=== PATIENT | female | born 1940 | race American Indian/Alaskan Native ===

== ENCOUNTER 2018-12-26 11:23 | Outpatient (CLI) | payer MEDICARE, OTHER | END 2018-12-26 11:24 | disposition home or self-care (01) | LOC: RAD 11:23 ==

== ENCOUNTER 2019-02-16 11:11 | Day surgery (SDC) | payer MEDICARE, OTHER ==
[2019-01-18 09:20] VITALS: BMI 26.6
[2019-02-16] MEDS ORDERED: Sodium Chloride 0.9% 1,000 ML IV SCH (12:30)
[2019-02-16] MEDS ORDERED: Propofol 10 mg/ml Inj (20 ML) ONE (13:39)
[2019-02-16 15:26] VITALS: RESP 16
[2019-02-16 16:56] VITALS: PULSE 88; TEMP 97.8; O2SAT 99
[2019-02-16 16:57] VITALS: BP 137/68
== END 2019-02-16 16:30 | disposition home or self-care (01) ==
LOC: ENDO 11:11
PROVIDERS: ATTEND Internal Medicine Gastroenterology
DX: Z12.11 Encounter for screening for malignant neoplasm of colon (principal); K63.5 Polyp of colon; K63.3 Ulcer of intestine; K64.0 First degree hemorrhoids; K21.9 Gastro-esophageal reflux disease without esophagitis; I10 Essential (primary) hypertension
CPT/HCPCS: 45380; 45385; 88305; J2001; J2704; J7030; J7040

== ENCOUNTER 2019-02-21 17:36 | Inpatient (IN) | payer MEDICARE, OTHER ==
--- NOTE | 2019-02-21 18:28 | CT ---
Date of service: 02/21/2019 PROCEDURE: CT HEAD WITHOUT CONTRAST. HISTORY: code stroke COMPARISON: Brain MRI without contrast performed 10/27/13 TECHNIQUE: Axial computed tomography images were obtained through the head/brain without intravenous contrast. Radiation dose: Total exam DLP = 1948.03 mGy-cm. This CT exam was performed using one or more of the following dose reduction techniques: Automated exposure control, adjustment of the mA and/or kV according to patient size, and/or use of iterative reconstruction technique. FINDINGS: Suboptimal evaluation due to patient motion. HEMORRHAGE: No intracranial hemorrhage. BRAIN: Diffuse atrophy with prominence of the ventricles and sulci noted. No mass effect or edema. Intracranial atherosclerosis. Nonspecific vague hypodense region within the right vertex (series 8, image 58). Scattered periventricular and subcortical white matter hypodensities, which are nonspecific, but often seen with chronic microvascular ischemic disease. Please note that MRI with diffusion imaging is more sensitive in the detection of acute ischemic event. VENTRICLES: No hydrocephalus. CALVARIUM: Unremarkable. PARANASAL SINUSES: Unremarkable as visualized. No significant inflammatory changes. MASTOID AIR CELLS: Unremarkable as visualized. No inflammatory changes. OTHER FINDINGS: None. IMPRESSION: Suboptimal evaluation due to patient motion. Nonspecific vague hypodense region within the right vertex; while this finding is favored to be artifactual due to patient motion, acute ischemic change cannot be excluded. Correlate with clinical presentation. Please note that MRI with diffusion imaging is more sensitive in the detection of acute ischemic event. Generalized atrophy. Moderate nonspecific white matter changes. Results were discussed with WALLACE Duvall on 02/21/19 at 6:19 p.m. as the ordering physician was unavailable in a procedure.
--- NOTE | 2019-02-21 18:42 | ED PDOC ---
Arrival/HPI - General Historian: Family (daughter) - Critical Care Critical Care Minutes: 75 minutes - History of Present Illness Narrative History of Present Illness (Text): 02/21/19 19:02 79 year old F with pmh of hypertension, anemia and GERD presents with daughter s/p possible stroke at 17:30 today. The patient's daughter reports patient was last seen at [id number], she noted left sided facial droop, slurred speech and weakness with her left upper extremity. Patient denies any chest pain, shortness of breath, dyspnea on exertion, cough, abdominal pain, nausea, vomiting, diarrhea, back pain, neck pain, or any other complaint. Of note, the daughter denies any recent surgeries, intracranial bleeding, seizure history or gastrointestinal bleeding or use of anticoagulants. PMD: Dr. Mason Time/Duration: Prior to Arrival Symptom Onset: Sudden Symptom Course: Unchanged Activities at Onset: Light Context: Home <Aubrey Felix - Last Filed: 02/22/19 11:02> <Abhishek Rodriguez - Last Filed: 02/27/19 14:53> - General Chief Complaint: Weakness/Neurological Deficit Time Seen by Provider: 02/21/19 18:03 Past Medical History - Provider Review Nursing Documentation Reviewed: Yes Primary Care Provider: Tiny Mason - Infectious Disease Hx of Infectious Diseases: None - Reproductive Menopause: Yes - Cardiac Hx Cardiac Disorders: Yes Hx Hypertension: Yes Hx Pacemaker: No - Neurological Hx Paralysis: No - Hematological/Oncological Hx Blood Transfusions: No - Integumentary Hx Dermatological Disorder: No - Musculoskeletal/Rheumatological Hx Musculoskeletal Disorders: No - Gastrointestinal Hx Gastroesophageal Reflux: Yes - Genitourinary/Gynecological Hx Genitourinary Disorders: No - Psychiatric Hx Emotional Abuse: No Hx Physical Abuse: No Hx Substance Use: No - Anesthesia Hx Anesthesia: Yes Hx Anesthesia Reactions: No Hx Malignant Hyperthermia: No - Suicidal Assessment Feels Threatened In Home Enviroment: No <Aubrey Felix - Last Filed: 02/22/19 11:02> Family/Social History - Physician Review Nursing Documentation Reviewed: Yes Family/Social History: Unknown Family HX Smoking Status: Never Smoked Hx Alcohol Use: No Hx Substance Use: No <Aubrey Felix - Last Filed: 02/22/19 11:02> Allergies/Home Meds <Aubrey Felix - Last Filed: 02/22/19 11:02> <Abhishek Rodriguez - Last Filed: 02/27/19 14:53> Allergies/Adverse Reactions: Allergies No Known Allergies Allergy (Verified 02/26/19 19:55) Home Medications: Home Meds Medication Instructions Recorded Confirmed Donepezil [Aricept] 10 mg PO DAILY 06/20/15 02/26/19 Metoprolol Succinate XL [Toprol XL] 50 mg PO QPM 06/20/15 02/26/19 Tolterodine [Detrol LA] 4 mg PO DAILY 06/20/15 02/26/19 Aspirin [Adult Low Dose Aspirin EC] 81 mg PO DAILY 01/18/19 02/26/19 Acetaminophen [Tylenol] 650 mg PO Q6 PRN 02/26/19 02/26/19 Atorvastatin Calcium 40 mg PO HS 02/26/19 02/26/19 Pantoprazole [Protonix] 40 mg PO 0600 02/26/19 02/26/19 guaiFENesin/Dextromethorphan 5 ml PO Q4 PRN 02/26/19 02/26/19 [Guaifenesin-Dm 10 MG/5 Ml-100 MG/5 Ml 5 Ml] Review of Systems - Physician Review All systems were reviewed & negative as marked: Yes - Review of Systems Systems not reviewed;Unavailable: Acuity of Condition Constitutional: absent: Fevers ENT: absent: Sore Throat, Rhinorrhea Respiratory: absent: SOB, Cough, Wheezing Cardiovascular: absent: Chest Pain Gastrointestinal: absent: Abdominal Pain, Constipation, Diarrhea, Nausea, Vomiting, Hematochezia, Hematemesis Genitourinary Female: absent: Dysuria, Hematuria Musculoskeletal: absent: Arthralgias, Back Pain, Myalgias Skin: absent: Rash, Skin Lesions, Laceration, Ulcer Neurological: Facial Droop (left sided) <Aubrey Felix - Last Filed: 02/22/19 11:02> Physical Exam Vital Signs Reviewed: Yes Vital Signs Temp Pulse Resp BP Pulse Ox 02/21/19 17:38 98.1 F 90 18 178/119 H 98 Temperature: Afebrile Blood Pressure: Hypertensive Pulse: Regular Respiratory Rate: Normal Appearance: Positive for: Well-Appearing, Non-Toxic, Comfortable Pain Distress: None Mental Status: Positive for: Lethargic Finger Stick Blood Glucose: 109 - Systems Exam Head: Present: Atraumatic, Normocephalic Pupils: Present: PERRL Extroacular Muscles: Present: Gaze Palsy (deviated rightward gaze) Conjunctiva: Present: Normal Mouth: Present: Moist Mucous Membranes Neck: Present: Normal Range of Motion Respiratory/Chest: Present: Clear to Auscultation, Good Air Exchange. No: Respiratory Distress, Accessory Muscle Use Cardiovascular: Present: Regular Rate and Rhythm, Normal S1, S2. No: Murmurs Abdomen: No: Tenderness, Distention, Peritoneal Signs Back: Present: Normal Inspection Upper Extremity: Present: Other (Left Upper extremity droop. Left arm 2/5 motor strength. Right arm 4/5 motor strength. ). No: Cyanosis, Edema Lower Extremity: Present: Other (Left lower extremity 2/5 motor strength, 3/5 right lower extremity strength). No: Edema Neurological: Present: Normal Sensory Function, Other (Dysarthria noted) Skin: Present: Warm, Dry, Normal Color. No: Rashes Psychiatric: Present: Alert <Aubrey Felix - Last Filed: 02/22/19 11:02> Vital Signs Temp Pulse Resp BP Pulse Ox 02/21/19 22:26 90 18 147/93 H 96 02/21/19 22:11 96 H 18 183/117 H 96 02/21/19 22:06 94 H 18 186/111 H 94 L 02/21/19 21:43 79 18 177/103 H 98 02/21/19 20:55 97.8 F 88 18 179/116 H 95 02/21/19 20:41 97 H 18 148/82 95 02/21/19 20:26 87 18 170/99 H 95 02/21/19 20:11 82 18 163/104 H 94 L 02/21/19 20:10 84 18 177/95 H 94 L 02/21/19 20:05 80 18 149/93 H 94 L 02/21/19 20:03 98.3 F 80 18 164/100 H 02/21/19 19:45 91 H 18 163/95 H 95 02/21/19 19:33 82 18 176/119 H 97 02/21/19 18:56 88 18 168/127 H 97 02/21/19 17:38 98.1 F 90 18 178/119 H 98 <Zeffren,Abhishek - Last Filed: 02/27/19 14:53> Medical Decision Making ED Course and Treatment: 02/21/19 19:02 Impression: 79 year old F presents with daughter s/p possible stroke at 17:30 today. Daughter reports patient last baseline was at 17:[address], she noted left facial droop NIHSS: 11 tPA eligibility: Yes Plan: -- Labs -- CTA Head & Neck -- EKG -- Chest X-ray -- Alteplase --Cardene --IV fluids --CTH -- Urinalysis -- Reassess and disposition Progress Notes: 02/21/19 18:47 Patient's daughter was educated on the use and risk of TPA. CTH negative for acute intracranial bleeding. Discussion with Dr. Del Rio(neurology) who states patient is a candidate for tPA and requests for CTA head/neck to be performed after initial tPA bolus and after infusion is started. Consent forms signed. 02/21/19 19:33 Pharmacy alerted on need for tPA. Blood pressure noted to be 180/121. Cardene ordered. Spoke to Dr. Brennan(covering Dr. Mason) who accept patient onto his service. 02/21/19 19:38 Cardene at 5mg/hr with repeat blood pressure noted to be 176/121. Cardene dosage increased. 02/21/19 19:47 Repeat blood pressure noted to be 165/95. Preparing for tPA administration. Spoke to Dr. Garcia(house staff) for ICU monitoring after tPA administration. 02/21/19 20:06 tPA given. Patient noted to be drooling. Blood pressure back up to 175/100s. Cardene restarted. 02/21/19 20:25 Patient will have CTA performed once tPA infusion has completed. - Critical Care Critical Care Minutes: 60 minutes - Lab Interpretations Lab Results: 02/21/19 18:43 02/21/19 18:43 Lab Results 02/21/19 18:43: Sodium 142, Potassium 3.6, Chloride 102, Carbon Dioxide 34 H, Anion Gap 10, BUN 12, Creatinine 0.9, Est GFR ( Amer) > 60, Est GFR (Non- Af Amer) > 60, Random Glucose 99, Calcium 9.2, Total Bilirubin 0.4, AST 38 H, ALT 19, Alkaline Phosphatase 68, Troponin I < 0.01, Total Protein 7.9, Albumin 4.1, Globulin 3.9, Albumin/Globulin Ratio 1.1, Triglycerides 147, Cholesterol 168, LDL Cholesterol Direct 84, HDL Cholesterol 43 02/21/19 18:43: PT 13.8 H, INR 1.24, APTT 38.5 H 02/21/19 18:43: WBC 7.8, RBC 4.38, Hgb 12.0, Hct 37.9, MCV 86.5, MCH 27.4, MCHC 31.7, RDW 14.6 H, Plt Count 399, MPV 9.7, Neut % (Auto) 39.2 L, Lymph % (Auto) 49.9 H, [place] % (Auto) 9.7 H, Eos % (Auto) 0.8 L, Baso % (Auto) 0.4, Lymph # (Auto) 3.9 H, [place] # (Auto) 0.8 H, Eos # (Auto) 0.1, Baso # (Auto) 0.03, Absolute Neuts (auto) 3.05 I have reviewed the lab results: Yes - RAD Interpretation Narrative RAD Interpretations (Text): PROCEDURE: CT HEAD WITHOUT CONTRAST. HISTORY: code stroke COMPARISON: Brain MRI without contrast performed 10/27/13 TECHNIQUE: Axial computed tomography images were obtained through the head/brain without intravenous contrast. Radiation dose: Total exam DLP = 1948.03 mGy-cm. This CT exam was performed using one or more of the following dose reduction techniques: Automated exposure control, adjustment of the mA and/or kV according to patient size, and/or use of iterative reconstruction technique. FINDINGS: Suboptimal evaluation due to patient motion. HEMORRHAGE: No intracranial hemorrhage. BRAIN: Diffuse atrophy with prominence of the ventricles and sulci noted. No mass effect or edema. Intracranial atherosclerosis. Nonspecific vague hypodense region within the right vertex (series 8, image 58). Scattered periventricular and subcortical white matter hypodensities, which are nonspecific, but often seen with chronic microvascular ischemic disease. Please note that MRI with diffusion imaging is more sensitive in the detection of acute ischemic event. VENTRICLES: No hydrocephalus. CALVARIUM: Unremarkable. PARANASAL SINUSES: Unremarkable as visualized. No significant inflammatory changes. MASTOID AIR CELLS: Unremarkable as visualized. No inflammatory changes. OTHER FINDINGS: None. IMPRESSION: Suboptimal evaluation due to patient motion. Nonspecific vague hypodense region within the right vertex; while this finding is favored to be artifactual due to patient motion, acute ischemic change cannot be excluded. Correlate with clinical presentation. Please note that MRI with diffusion imaging is more sensitive in the detection of acute ischemic event. Generalized atrophy. Moderate nonspecific white matter changes. Results were discussed with WALLACE Duvall on 02/21/19 at 6:19 p.m. as the ordering physician was unavailable in a procedure. 02/21/2019 PROCEDURE: CT Angiography of the neck with contrast HISTORY: LUE and drooling COMPARISON: None. TECHNIQUE: Contiguous axial images of the neck were obtained from the level of the skull- base to the superior mediastinum in the arteriographic phase of enhancement. Coronal and sagittal reformats or also generated. IV contrast dose: Radiation dose: Total exam DLP = 643.63 mGy-cm. This CT exam was performed using one or more of the following dose reduction techniques: Automated exposure control, adjustment of the mA and/or kV according to patient size, and/or use of iterative reconstruction technique. FINDINGS: RIGHT CAROTID ARTERIES: Common Carotid Artery: Normal. Carotid Bifurcation: Normal. Internal Carotid Artery:Minimal calcified plaque without stenosis. External Carotid Artery (proximal branches): Normal. LEFT CAROTID ARTERIES: Common Carotid Artery: Normal. Carotid Bifurcation: Normal. Internal Carotid Artery:Normal. External Carotid Artery (proximal branches): Normal. VERTEBRAL ARTERIES: Right Vertebral Artery: Normal. Left Vertebral Artery: Normal. OTHER FINDINGS: Aortic calcification IMPRESSION: No significant carotid or vertebral stenosis CT Angiography of the Brain. HISTORY: LUE and drooling COMPARISON: None available. TECHNIQUE: CT angiography of the intracranial arteries was performed. Coronal and sagittal maximum intensity projection reformated images were generated. Radiation dose: Total exam DLP = 643.63 mGy-cm. This CT exam was performed using one or more of the following dose reduction techniques: Automated exposure control, adjustment of the mA and/or kV according to patient size, and/or use of iterative reconstruction technique. FINDINGS: INTERNAL CEREBRAL ARTERIES: Unremarkable. The skull base, petrous, cavernous and supraclinoid segments are bilaterally widely patent. ANTERIOR CEREBRAL ARTERIES: Unremarkable. A1 and A2 segments are widely patent. Smaller distal branches unremarkable, as visualized. MIDDLE CEREBRAL ARTERIES: Unremarkable. M1 and M2 segments are widely patent. Perisylvian branches grossly symmetric. POSTERIOR CIRCULATION: Basilar Artery: Unremarkable. Distal Vertebral Arteries: Unremarkable. Posterior Cerebral Arteries: Unremarkable. Posterior Inferior Cerebellar Arteries: Unremarkable. ANEURYSM/ VASCULAR MALFORMATIONS: None. OTHER FINDINGS: The report concurs with the preliminary [facility] report IMPRESSION: Unremarkable CT Angiography of the Brain. Radiology Orders: 02/21/19 17:52 HEAD W/O (CODE STROKE) [CT] Stat 02/21/19 18:29 CHEST PORTABLE [RAD] Stat <Bosompem,Aubrey - Last Filed: 02/22/19 11:02> - Lab Interpretations Lab Results: PT 13.8 SECONDS (9.4-12.5) H 02/21/19 18:43 INR 1.24 02/21/19 18:43 APTT 38.5 Seconds (26.9-38.3) H 02/21/19 18:43 Troponin I < 0.01 ng/mL 02/21/19 18:43 Total Bilirubin 0.4 mg/dL (0.2-1.3) 02/21/19 18:43 AST 38 U/L (14-36) H 02/21/19 18:43 ALT 19 U/L (7-56) 02/21/19 18:43 Alkaline Phosphatase 68 U/L (38-126) 02/21/19 18:43 Total Protein 7.9 g/dL (5.8-8.3) 02/21/19 18:43 Albumin 4.1 g/dL (3.0-4.8) 02/21/19 18:43 Globulin 3.9 gm/dL 02/21/19 18:43 Albumin/Globulin Ratio 1.1 (1.1-1.8) 02/21/19 18:43 Urine Color Yellow (YELLOW) 02/21/19 21:10 Urine Appearance Clear (CLEAR) 02/21/19 21:10 Urine pH 6.5 (4.7-8.0) 02/21/19 21:10 Ur Specific [place] 1.025 (1.005-1.035) 02/21/19 21:10 Urine Protein 30 mg/dL (<30 mg/dL) H 02/21/19 21:10 Urine Glucose (UA) Negative mg/dL (NEGATIVE) 02/21/19 21:10 Urine Ketones Negative mg/dL (NEGATIVE) 02/21/19 21:10 Urine Blood Trace-intact (NEGATIVE) H 02/21/19 21:10 Urine Nitrate Negative (NEGATIVE) 02/21/19 21:10 Urine Bilirubin Negative (NEGATIVE) 02/21/19 21:10 Urine Urobilinogen 0.2 E.U./dL (<1 E.U./dL) 02/21/19 21:10 Ur Leukocyte Esterase Negative Ge[place]ani/uL (NEGATIVE) 02/21/19 21:10 Urine RBC 2 - 5 /hpf (0-2) H 02/21/19 21:10 Urine WBC 1 - 3 /hpf (0-6) 02/21/19 21:10 Ur Epithelial Cells 4 - 5 /hpf (0-5) 02/21/19 21:10 Urine Bacteria Few /hpf (NONE) 02/21/19 21:10 - RAD Interpretation Radiology Orders: 02/21/19 17:52 HEAD W/O (CODE STROKE) [CT] Stat 02/21/19 18:29 CHEST PORTABLE [RAD] Stat 02/21/19 18:58 CTA HEAD & NECK BUNDLE [CT] Stat - Medication Orders Current Medication Orders: Aspirin (Ecotrin) 81 mg PO DAILY [facility] Last Admin: 02/22/19 09:11 Dose: Not Given Non-Admin Reason: NPO Atorvastatin Calcium (Lipitor) 40 mg PO DIN [facility] Donepezil HCl (Aricept) 10 mg PO DAILY [facility] Last Admin: 02/22/19 09:11 Dose: Not Given Non-Admin Reason: NPO Guaifenesin/Dextromethorphan (Robitussin Dm) 5 ml PO Q4H PRN PRN Reason: Cough Metoprolol Succinate (Toprol Xl) 50 mg PO QPM [facility] Pantoprazole Sodium (Protonix Inj) 40 mg IVP Q12 [facility] Last Admin: 02/22/19 11:08 Dose: 40 mg IVP Administration Document 02/22/19 11:08 RAMOM (Rec: 02/22/19 11:08 [place] [facility] [id number] Charges for Administration # of IVP Administrations 1 Tolterodine Tartrate (Detrol La) 4 mg PO DAILY [facility] Last Admin: 02/22/19 09:11 Dose: Not Given Non-Admin Reason: NPO Discontinued Medications Alteplase, Recombinant (Activase 100 Mg Inj) 7 mg 0.09 mg/kg (7 mg) IV ONCE ONE Stop: 02/21/19 18:54 Last Admin: 02/21/19 20:03 Dose: 7 mg eMAR Start Stop Document 02/21/19 20:03 KV (Rec: 02/21/19 20:07 KV [id number]) Intravenous Solution Start Date 02/21/19 Start Time 20:03 End Date 02/21/19 End time 20:04 Total Infusion Time 1 Alteplase, Recombinant (Activase 100 Mg Inj) 65 mg 0.81 mg/kg (65 mg) IV ONCE ONE Stop: 02/21/19 19:00 Last Admin: 02/21/19 20:12 Dose: 65 mg eMAR Start Stop Document 02/21/19 20:12 KV (Rec: 02/21/19 20:12 KV [id number]) Intravenous Solution Start Date 02/21/19 Start Time 20:07 End Date 02/21/19 End time 20:55 Total Infusion Time 48 Atorvastatin Calcium (Lipitor) 10 mg PO DIN MARI[facility] Atorvastatin Calcium (Lipitor) 80 mg PO DIN [facility] Nicardipine HCl (Cardene Iv Premix) 20 mg in 200 mls @ 50 mls/hr IV .Q4H STA Stop: 02/21/19 23:22 Last Infusion: 02/21/19 22:38 Dose: 2.5 mg/hr, 25 mls/hr Titration Intervention Document 02/21/19 22:38 KV (Rec: 02/21/19 22:38 KV [id number]) Titration Intake Titration Intake 5 Cumulative Intake 55 Cumulative Intake (Rx) 55 Waste Amount 0 Container Volume 95 Titration Dosing Titration Dose 2.5 IV Rate 25 Intake/Decrease Decreased Cumulative Dose 5.5 Sodium Chloride (Sodium Chloride 0.9%) 1,000 mls @ 100 mls/hr IV .Q10H STA Stop: 02/22/19 06:31 Last Admin: 02/21/19 20:07 Dose: 100 mls/hr eMAR Start Stop Document 02/21/19 20:07 KV (Rec: 02/21/19 20:58 KV [id number]) Intravenous Solution Start Date 02/21/19 Start Time 20:07 Nicardipine HCl (Cardene Iv Premix) 20 mg in 200 mls @ 50 mls/hr IV .Q4H PRN; Protocol PRN Reason: TITRATE PER MD ORDER Last Titration: 02/22/19 04:44 Dose: 0 mg/hr, 0 mls/hr Titration Intervention Document 02/22/19 04:44 FM (Rec: 02/22/19 04:45 FM [facility] [id number] Titration Intake Titration Intake 150 Cumulative Intake 150 Cumulative Intake (Rx) 150 Waste Amount 0 Container Volume 50 Titration Dosing Titration Dose 0 IV Rate 0 Intake/Decrease Paused Cumulative Dose 15 Ondansetron HCl (Zofran Inj) 4 mg IVP STAT STA Stop: 02/21/19 20:34 Last Admin: 02/21/19 19:56 Dose: 4 mg IVP Administration Document 02/21/19 19:56 KV (Rec: 02/21/19 20:57 KV [id number]) Charges for Administration # of IVP Administrations 1 <Abhishek Rodriguez - Last Filed: 02/27/19 14:53> NIHSS Scale(Friendly)3 Time Performed: 18:38 - How Severe is the Stoke Baseline Level of Consciousness: 1=Drowsy LOC to Questions: 1=One correct LOC to commands: 1=Obeys one correctly Best Gaze: 1=Partial gaze palsy Visual: 0=No visual loss Facial: 2=Partial (lower face paralysis) Motor Arm - Left: 2=Falls before 10 sec Motor Arm - Right: 0=No drift Motor Leg - Left: 1=Drift before 5 sec Motor Leg - Right: 0=No drift Limb Ataxia: 0=Absent Sensory: 0=Normal Best Language: 1=Mild to moderate aphasia Dysarthia: 1=Mild to moderate slurring Extinction & Inattention (Neglect): 0=Normal, no object Score: 11 Risk Level: Mod Stroke Risk <Aubrey Felix - Last Filed: 02/22/19 11:02> rTPA Inclusion/Exclusion - Refusal of Treatment Patient Refused Treatment: No - Inclusion Criteria for Altepase All of the below criteria for inclusion were reviewed: Yes Patient is 18 years or Older: Yes The Clinical Diagnosis of Ischemic Stroke That is Causing a Potentially Disabling Neurological Deficit: Yes Time of Onset is Well Established to be Less Than 270 Minute Before Treatment Would Begin: Yes Risk/Benefit Discussed With Patient/Family Member Present: Yes - Exclusion Criteria for Altepase Current Intracranial Hemorrhage: No Subarachnoid hemorrhage: No Active Internal Bleeding: No Recent (within 3 months) Intracranial or Intraspinal Surgery: No Presence of intracranial conditions that may increase the risk of bleeding: Not Applicable Current Severe Uncontrolled Hypertension: Yes <Harrison Felixyl - Last Filed: 02/22/19 11:02> - Exclusion Criteria for Altepase Bleeding Diathesis Including but not limited to: Not Applicable <Abhishek Rodriguez - Last Filed: 02/27/19 14:53> - Scribe Statement The provider has reviewed the documentation as recorded by the Lili Cancino All medical record entries made by the Lili were at my direction and personally dictated by me. I have reviewed the chart and agree that the record accurately reflects my personal performance of the history, physical exam, medical decision making, and the department course for this patient. I have also personally directed, reviewed, and agree with the discharge instructions and disposition. <Aubrey Felix - Last Filed: 02/22/19 11:02> Disposition/Present on Arrival - Present on Arrival Any Indicators Present on Arrival: No History of DVT/PE: No History of Uncontrolled Diabetes: No Urinary Catheter: No History of Decub. Ulcer: No History Surgical Site Infection Following: None - Disposition Have Diagnosis and Disposition been Completed?: Yes Disposition Time: 18:30 Patient Plan: Admission, ICU <Aubrey Felix - Last Filed: 02/22/19 11:02> <Abhishek Rodriguez - Last Filed: 02/27/19 14:53> - Disposition Diagnosis: CVA (cerebral vascular accident), Hypertensive emergency Disposition: HOSPITALIZED Condition: GUARDED
[2019-02-21 18:46] LABS: BLOOD UREA NITROGEN 12 mg/dL (7-21); GFR NON-AFRICAN AMERICAN > 60
[2019-02-21 18:47] LABS: ALB/GLOB RATIO 1.1 (1.1-1.8); ALBUMIN 4.1 g/dL (3.0-4.8); ALT/SGPT 19 U/L (7-56); AST/SGOT 38 U/L (14-36); BASO # 0.03 K/mm3 (0.0-2.0); BASO % 0.4 % (0.0-3.0); CALCIUM 9.2 mg/dL (8.4-10.5); EOS # 0.1 (0.0-0.7); EOS % 0.8 % (1.5-5.0); LYMPH # 3.9 (1.2-3.4); LYMPH % 49.9 % (22.0-35.0); MEAN CELL VOLUME 86.5 fl (80.0-105.0); MEAN CORPUSCULAR HEMOGLOBIN 27.4 pg (25.0-35.0); MEAN CORPUSCULAR HGB CONC 31.7 g/dl (31.0-37.0); MEAN PLATELET VOLUME 9.7 fl (7.0-11.0); MONO # 0.8 (0.1-0.6); MONO % 9.7 % (1.0-6.0); RBC 4.38 10^6/uL (3.5-6.1); RED CELL DISTRIBUTION WIDTH 14.6 % (11.5-14.5); WHITE BLOOD COUNT 7.8 10^3/uL (4.5-11.0)
[2019-02-21 18:48] LABS: HDL CHOLESTEROL 43 mg/dL (29-60); LDL CHOLESTEROL 84 mg/dL (0-129); TROPONIN I < 0.01 ng/mL
[2019-02-21 18:51] LABS: INR 1.24; PARTIAL THROMBOPLASTIN TIME 38.5 Seconds (26.9-38.3); PROTHROMBIN TIME 13.8 SECONDS (9.4-12.5)
[2019-02-21] MEDS ORDERED: Nicardipine 20 MG/200 ML 20 MG/200 ML BAG IV STA (19:23)
[2019-02-21] MEDS ORDERED: Sodium Chloride 0.9% 1,000 ML IV STA (20:32)
[2019-02-21 21:24] LABS: PH,URINE 6.5 (4.7-8.0); URINE BILIRUBIN NEGATIVE (NEGATIVE); URINE BLOOD TRACE-INTACT (NEGATIVE); URINE GLUCOSE (UA) NEGATIVE (NEGATIVE); URINE LEUKOCYTE ESTERASE NEGATIVE Leu/uL (NEGATIVE); URINE PROTEIN 30 mg/dL (<30 mg/dL); URINE UROBILINOGEN 0.2 E.U./dL (<1 E.U./dL)
[2019-02-21 21:27] LABS: URINE APPEARANCE CLEAR (CLEAR); URINE COLOR YELLOW (YELLOW)
--- NOTE | 2019-02-21 21:33 | CP.PCM.CON ---
<Lion Fengnéstor - Last Filed: 02/21/19 22:47> History of Present Illness - History of Present Illness History of Present Illness: Johnson Feng DO, PGY-2: ICU Consult Note for Dr. Garcia 79 year old, right handed female with a past medical history of hypertension, mild dementia, and heart murmur who presented with left facial droop, slurred speech, and left arm weakness noted at 17:30 today by daughter. Patient met criteria for tPa which was given at the discretion of the on-call Neurologist. 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 She has received alteplase and is awaiting CTA of head and neck. Family is at the bedside. She denies having any kind of chest pain, nausea, vomiting, severe head ache, fever, chills, or palpitations. Otherwise, a 12 point ROS is negative except as mentioned above. PMH: hypertension, heart murmur, mild dementia PSH: Unknown Allergies: Denies Social: Denies alcohol, tobacco, or illicit drug use PMD: Dr. Mason Review of Systems - Review of Systems All systems: reviewed and no additional remarkable complaints except (as per HPI) Past Patient History - Infectious Disease Hx of Infectious Diseases: None - Past Social History Smoking Status: Never Smoked - CARDIAC Hx Cardiac Disorders: Yes Hx Hypertension: Yes Hx Pacemaker: No - NEUROLOGICAL Hx Paralysis: No - HEMATOLOGICAL/ONCOLOGICAL Hx Blood Transfusions: No - INTEGUMENTARY Hx Dermatological Problems: No - MUSCULOSKELETAL/RHEUMATOLOGICAL Hx Musculoskeletal Disorders: No - GASTROINTESTINAL Hx Gastroesophageal Reflux: Yes - GENITOURINARY/GYNECOLOGICAL Hx Genitourinary Disorders: No - PSYCHIATRIC Hx Emotional Abuse: No Hx Physical Abuse: No Hx Substance Use: No - SURGICAL HISTORY Hx Surgeries: Yes - ANESTHESIA Hx Anesthesia: Yes Hx Anesthesia Reactions: No Hx Malignant Hyperthermia: No Meds Allergies/Adverse Reactions: Allergies Allergy/AdvReac Type Severity Reaction Status Date / Time No Known Allergies Allergy Verified 08/16/15 20:58 - Medications Medications: Current Medications Nicardipine HCl (Cardene Iv Premix) 20 mg in 200 mls @ 50 mls/hr IV .Q4H STA Stop: 02/21/19 23:22 Last Infusion: 02/21/19 20:58 Dose: 2.5 mg/hr, 25 mls/hr Sodium Chloride (Sodium Chloride 0.9%) 1,000 mls @ 100 mls/hr IV .Q10H STA Stop: 02/22/19 06:31 Last Admin: 02/21/19 20:07 Dose: 100 mls/hr Physical Exam - Constitutional Appears: Non-toxic, No Acute Distress - Head Exam Head Exam: ATRAUMATIC, NORMOCEPHALIC - Eye Exam Pupil Exam: PERRL Additional comments: right gaze preference - ENT Exam ENT Exam: Mucous Membranes Moist - Neck Exam Neck exam: Positive for: Normal Inspection - Respiratory Exam Respiratory Exam: Clear to Auscultation Bilateral, NORMAL BREATHING PATTERN. absent: Accessory Muscle Use - Cardiovascular Exam Cardiovascular Exam: RRR, +S1, +S2 - GI/Abdominal Exam GI & Abdominal Exam: Normal Bowel Sounds, Soft - Extremities Exam Extremities exam: Positive for: normal inspection. 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 4/5, left facial droop, no dysmetria noted on finger to nose, lower extremities graded 5/5 bilaterally, patient has dysarthria but no aphasia, and is exhbiting some left sided neglect - Psychiatric Exam Psychiatric exam: Normal Affect, Normal Mood - Skin Skin Exam: Dry, Intact, Normal Color, Warm Results - Vital Signs Recent Vital Signs: Last Vital Signs Temp 97.8 F 02/21/19 20:55 Pulse 88 02/21/19 20:55 Resp 18 02/21/19 20:55 BP 179/116 H 02/21/19 20:55 Pulse Ox 95 02/21/19 20:55 - Labs Result Diagrams: 02/21/19 18:43 02/21/19 18:43 Labs: Laboratory Results - last 24 hr 02/21/19 02/21/19 02/21/19 18:43 18:43 18:43 WBC 7.8 RBC 4.38 Hgb 12.0 Hct 37.9 MCV 86.5 MCH 27.4 MCHC 31.7 RDW 14.6 H Plt Count 399 MPV 9.7 Neut % (Auto) 39.2 L Lymph % (Auto) 49.9 H Elliott % (Auto) 9.7 H Eos % (Auto) 0.8 L Baso % (Auto) 0.4 Lymph # (Auto) 3.9 H Elliott # (Auto) 0.8 H Eos # (Auto) 0.1 Baso # (Auto) 0.03 Absolute Neuts (auto) 3.05 PT 13.8 H INR 1.24 APTT 38.5 H Sodium 142 Potassium 3.6 Chloride 102 Carbon Dioxide 34 H Anion Gap 10 BUN 12 Creatinine 0.9 Est GFR ( Amer) > 60 Est GFR (Non-Af Amer) > 60 Random Glucose 99 Calcium 9.2 Total Bilirubin 0.4 AST 38 H ALT 19 Alkaline Phosphatase 68 Troponin I < 0.01 Total Protein 7.9 Albumin 4.1 Globulin 3.9 Albumin/Globulin Ratio 1.1 Triglycerides 147 Cholesterol 168 LDL Cholesterol Direct 84 HDL Cholesterol 43 Urine Color Urine Appearance Urine pH Ur Specific [place] Urine Protein Urine Glucose (UA) Urine Ketones Urine Blood Urine Nitrate Urine Bilirubin Urine Urobilinogen Ur Leukocyte Esterase Blood Type BBK History Checked 02/21/19 02/21/19 02/21/19 18:53 19:30 21:10 WBC RBC Hgb Hct MCV MCH MCHC RDW Plt Count MPV Neut % (Auto) Lymph % (Auto) Elliott % (Auto) Eos % (Auto) Baso % (Auto) Lymph # (Auto) Elliott # (Auto) Eos # (Auto) Baso # (Auto) Absolute Neuts (auto) PT INR APTT Sodium Potassium Chloride Carbon Dioxide Anion Gap BUN Creatinine Est GFR ( Amer) Est GFR (Non-Af Amer) Random Glucose Calcium Total Bilirubin AST ALT Alkaline Phosphatase Troponin I Total Protein Albumin Globulin Albumin/Globulin Ratio Triglycerides Cholesterol LDL Cholesterol Direct HDL Cholesterol Urine Color Yellow Urine Appearance Clear Urine pH 6.5 Ur Specific [place] 1.025 Urine Protein 30 H Urine Glucose (UA) Negative Urine Ketones Negative Urine Blood Trace-intact H Urine Nitrate Negative Urine Bilirubin Negative Urine Urobilinogen 0.2 Ur Leukocyte Esterase Negative Blood Type O POSITIVE BBK History Checked No verified bt Patient has bt Assessment & Plan - Assessment and Plan (Free Text) Assessment: 79 year old, right handed female with a past medical history of hypertension, mild dementia, and heart murmur who presented with left facial droop, slurred speech, and left arm weakness noted at 17:30 today by daughter. 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 Del [place] Case was reviewed and discussed with attending physician, Dr. Garcia <Kapil Garcia - Last Filed: 02/22/19 20:56> Meds - Medications Medications: Current Medications Aspirin (Ecotrin) 81 mg PO DAILY [facility] Last Admin: 02/22/19 09:11 Dose: Not Given Atorvastatin Calcium (Lipitor) 40 mg PO DIN [facility] Last Admin: 02/22/19 17:29 Dose: 40 mg Donepezil HCl (Aricept) 10 mg PO DAILY [facility] Last Admin: 02/22/19 09:11 Dose: Not Given Guaifenesin/Dextromethorphan (Robitussin Dm) 5 ml PO Q4H PRN PRN Reason: Cough Last Admin: 02/22/19 17:29 Dose: 5 ml Metoprolol Succinate (Toprol Xl) 50 mg PO QPM [facility] Last Admin: 02/22/19 17:29 Dose: 50 mg Pantoprazole Sodium (Protonix Inj) 40 mg IVP Q12 [facility] Last Admin: 02/22/19 11:08 Dose: 40 mg Tolterodine Tartrate (Detrol La) 4 mg PO DAILY [facility] Last Admin: 02/22/19 09:11 Dose: Not Given Results - Vital Signs Recent Vital Signs: Last Vital Signs Temp 98.1 F 02/22/19 16:00 Pulse 113 H 02/22/19 18:02 Resp 41 H 02/22/19 18:02 BP 132/73 02/22/19 17:46 Pulse Ox 99 02/22/19 14:31 - Labs Result Diagrams: 02/21/19 18:43 02/21/19 18:43 Labs: Laboratory Results - last 24 hr 02/21/19 02/21/19 02/21/19 17:44 19:30 21:10 POC Glucose (mg/dL) 109 Urine Color Yellow Urine Appearance Clear Urine pH 6.5 Ur Specific [place] 1.025 Urine Protein 30 H Urine Glucose (UA) Negative Urine Ketones Negative Urine Blood Trace-intact H Urine Nitrate Negative Urine Bilirubin Negative Urine Urobilinogen 0.2 Ur Leukocyte Esterase Negative Urine RBC 2 - 5 H Urine WBC 1 - 3 Ur Epithelial Cells 4 - 5 Urine Bacteria Few Blood Type O POSITIVE Antibody Screen Negative BBK History Checked Patient has bt Attending/Attestation - Attestation I have personally seen and examined this patient.: Yes I have fully participated in the care of the patient.: Yes I have reviewed all pertinent clinical information: Yes
[2019-02-21 21:51] LABS: URINE BACTERIA FEW /hpf
[2019-02-22] MEDS ORDERED: Nicardipine 20 MG/200 ML 20 MG/200 ML BAG IV PRN (00:18)
[2019-02-22 01:24] VITALS: BMI 25.4
--- NOTE | 2019-02-22 08:21 | CT ---
Date of service: 02/21/2019 PROCEDURE: CT Angiography of the neck with contrast HISTORY: LUE and drooling COMPARISON: None. TECHNIQUE: Contiguous axial images of the neck were obtained from the level of the skull-base to the superior mediastinum in the arteriographic phase of enhancement. Coronal and sagittal reformats or also generated. IV contrast dose: Radiation dose: Total exam DLP = 643.63 mGy-cm. This CT exam was performed using one or more of the following dose reduction techniques: Automated exposure control, adjustment of the mA and/or kV according to patient size, and/or use of iterative reconstruction technique. FINDINGS: RIGHT CAROTID ARTERIES: Common Carotid Artery: Normal. Carotid Bifurcation: Normal. Internal Carotid Artery:Minimal calcified plaque without stenosis. External Carotid Artery (proximal branches): Normal. LEFT CAROTID ARTERIES: Common Carotid Artery: Normal. Carotid Bifurcation: Normal. Internal Carotid Artery:Normal. External Carotid Artery (proximal branches): Normal. VERTEBRAL ARTERIES: Right Vertebral Artery: Normal. Left Vertebral Artery: Normal. OTHER FINDINGS: Aortic calcification IMPRESSION: No significant carotid or vertebral stenosis CT Angiography of the Brain. HISTORY: LUE and drooling COMPARISON: None available. TECHNIQUE: CT angiography of the intracranial arteries was performed. Coronal and sagittal maximum intensity projection reformated images were generated. Radiation dose: Total exam DLP = 643.63 mGy-cm. This CT exam was performed using one or more of the following dose reduction techniques: Automated exposure control, adjustment of the mA and/or kV according to patient size, and/or use of iterative reconstruction technique. FINDINGS: INTERNAL CEREBRAL ARTERIES: Unremarkable. The skull base, petrous, cavernous and supraclinoid segments are bilaterally widely patent. ANTERIOR CEREBRAL ARTERIES: Unremarkable. A1 and A2 segments are widely patent. Smaller distal branches unremarkable, as visualized. MIDDLE CEREBRAL ARTERIES: Unremarkable. M1 and M2 segments are widely patent. Perisylvian branches grossly symmetric. POSTERIOR CIRCULATION: Basilar Artery: Unremarkable. Distal Vertebral Arteries: Unremarkable. Posterior Cerebral Arteries: Unremarkable. Posterior Inferior Cerebellar Arteries: Unremarkable. ANEURYSM/ VASCULAR MALFORMATIONS: None. OTHER FINDINGS: The report concurs with the preliminary [facility] report IMPRESSION: Unremarkable CT Angiography of the Brain.
--- NOTE | 2019-02-22 08:27 | CP.CCUPN ---
<Abhishek Rodriguez - Last Filed: 02/22/19 11:14> CCU Subjective - Physician Review Subjective (Free Text): Abhishek Rodriguez PGY-1 Critical Care Progress Note Patient seen and evaluated at bedside. Patient completed tPa administration at 9 pm last night. No acute events reported since. Patient reports RUE feels cool at times but denies chest pain, palpitations, shortness of breath, headaches, weakness and headaches. Patient just experienced single bloody bowel movement. CCU Objective - Vital Signs / Intake & Output Intake and Output (Last 8hrs): Intake & Output 02/21/19 02/22/19 02/22/19 22:59 06:59 14:59 Intake Total 55 950 Output Total 1700 Balance 55 -750 Weight 79.651 kg 78.381 kg Intake: IV 55 950 Right Hand 800 Output: Urine 1700 Urethral (Johnson) 1700 - Physical Exam Head: Positive for: Atraumatic, Normocephalic Pupils: Positive for: PERRL Extroacular Muscles: Positive for: EOMI Conjunctiva: Positive for: Normal Mouth: Positive for: Moist Mucous Membranes Neck: Positive for: Normal Range of Motion Respiratory/Chest: Positive for: Clear to Auscultation, Good Air Exchange. Negative for: Respiratory Distress, Accessory Muscle Use Cardiovascular: Positive for: Regular Rate and Rhythm, Normal S1, S2. Negative for: Murmurs Abdomen: Negative for: Tenderness, Distention, Peritoneal Signs Back: Positive for: Normal Inspection Upper Extremity: Positive for: Other (Left arm 3/5 motor strength. Right arm 4/5 motor strength. ). Negative for: Cyanosis, Edema Lower Extremity: Positive for: Other (Left leg 3/5 motor strength). Negative for: Edema Neurological: Positive for: Normal Sensory Function, Other (Slurred speech; left facial droop, no dysmetria noted on finger to nose, patient has dysarthria but no aphasia) Skin: Positive for: Warm, Dry, Normal Color. Negative for: Rashes Psychiatric: Positive for: Alert, Oriented x 3, Normal Insight, Normal Concentration - Medications Active Medications: Active Medications Generic Name Dose Route Start Last Admin Trade Name Freq PRN Reason Stop Dose Admin Nicardipine HCl 20 mg in 200 mls @ 50 mls/hr 02/22/19 00:18 02/22/19 04:44 Cardene Iv Premix IV 0 mg/hr .Q4H PRN 0 mls/hr TITRATE PER MD ORDER Titration Protocol 5 MG/HR - Patient Studies Lab Studies: Lab Studies 02/21/19 02/21/19 02/21/19 Range/Units 21:10 19:30 18:53 WBC (4.5-11.0) 10^3/uL RBC (3.5-6.1) 10^6/uL Hgb (12.0-16.0) g/dL Hct (36.0-48.0) % MCV (80.0-105.0) fl MCH (25.0-35.0) pg MCHC (31.0-37.0) g/dl RDW (11.5-14.5) % Plt Count (120.0-450.0) 10^3/uL MPV (7.0-11.0) fl Neut % (Auto) (50.0-68.0) % Lymph % (Auto) (22.0-35.0) % [place] % (Auto) (1.0-6.0) % Eos % (Auto) (1.5-5.0) % Baso % (Auto) (0.0-3.0) % Lymph # (Auto) (1.2-3.4) [place] # (Auto) (0.1-0.6) Eos # (Auto) (0.0-0.7) Baso # (Auto) (0.0-2.0) K/mm3 Absolute Neuts (auto) (1.4-6.5) PT (9.4-12.5) SECONDS INR APTT (26.9-38.3) Seconds Sodium (132-148) mmol/L Potassium (3.6-5.0) mmol/L Chloride (98-107) mmol/L Carbon Dioxide (21-33) mmol/L Anion Gap (10-20) BUN (7-21) mg/dL Creatinine (0.7-1.2) mg/dl Est GFR ( Amer) Est GFR (Non-Af Amer) POC Glucose (mg/dL) (65-110) mg/dL Random Glucose (70-110) mg/dL Calcium (8.4-10.5) mg/dL Total Bilirubin (0.2-1.3) mg/dL AST (14-36) U/L ALT (7-56) U/L Alkaline Phosphatase (38-126) U/L Troponin I ng/mL Total Protein (5.8-8.3) g/dL Albumin (3.0-4.8) g/dL Globulin gm/dL Albumin/Globulin Ratio (1.1-1.8) Triglycerides (35-160) mg/dL Cholesterol (130-200) mg/dL LDL Cholesterol Direct (0-129) mg/dL HDL Cholesterol (29-60) mg/dL Urine Color Yellow (YELLOW) Urine Appearance Clear (CLEAR) Urine pH 6.5 (4.7-8.0) Ur Specific [place] 1.025 (1.005-1.035) Urine Protein 30 H (<30 mg/dL) mg/dL Urine Glucose (UA) Negative (NEGATIVE) mg/dL Urine Ketones Negative (NEGATIVE) mg/dL Urine Blood Trace-intact H (NEGATIVE) Urine Nitrate Negative (NEGATIVE) Urine Bilirubin Negative (NEGATIVE) Urine Urobilinogen 0.2 (<1 E.U./dL) E.U./dL Ur Leukocyte Esterase Negative (NEGATIVE) Geovani/uL Urine RBC 2 - 5 H (0-2) /hpf Urine WBC 1 - 3 (0-6) /hpf Ur Epithelial Cells 4 - 5 (0-5) /hpf Urine Bacteria Few (NONE) /hpf Blood Type O POSITIVE O POSITIVE Antibody Screen Negative BBK History Checked Patient has bt No verified bt 02/21/19 02/21/19 02/21/19 Range/Units 18:43 18:43 18:43 WBC 7.8 (4.5-11.0) 10^3/uL RBC 4.38 (3.5-6.1) 10^6/uL Hgb 12.0 (12.0-16.0) g/dL Hct 37.9 (36.0-48.0) % MCV 86.5 (80.0-105.0) fl MCH 27.4 (25.0-35.0) pg MCHC 31.7 (31.0-37.0) g/dl RDW 14.6 H (11.5-14.5) % Plt Count 399 (120.0-450.0) 10^3/uL MPV 9.7 (7.0-11.0) fl Neut % (Auto) 39.2 L (50.0-68.0) % Lymph % (Auto) 49.9 H (22.0-35.0) % [place] % (Auto) 9.7 H (1.0-6.0) % Eos % (Auto) 0.8 L (1.5-5.0) % Baso % (Auto) 0.4 (0.0-3.0) % Lymph # (Auto) 3.9 H (1.2-3.4) [place] # (Auto) 0.8 H (0.1-0.6) Eos # (Auto) 0.1 (0.0-0.7) Baso # (Auto) 0.03 (0.0-2.0) K/mm3 Absolute Neuts (auto) 3.05 (1.4-6.5) PT 13.8 H (9.4-12.5) SECONDS INR 1.24 APTT 38.5 H (26.9-38.3) Seconds Sodium 142 (132-148) mmol/L Potassium 3.6 (3.6-5.0) mmol/L Chloride 102 (98-107) mmol/L Carbon Dioxide 34 H (21-33) mmol/L Anion Gap 10 (10-20) BUN 12 (7-21) mg/dL Creatinine 0.9 (0.7-1.2) mg/dl Est GFR ( Amer) > 60 Est GFR (Non-Af Amer) > 60 POC Glucose (mg/dL) (65-110) mg/dL Random Glucose 99 (70-110) mg/dL Calcium 9.2 (8.4-10.5) mg/dL Total Bilirubin 0.4 (0.2-1.3) mg/dL AST 38 H (14-36) U/L ALT 19 (7-56) U/L Alkaline Phosphatase 68 (38-126) U/L Troponin I < 0.01 ng/mL Total Protein 7.9 (5.8-8.3) g/dL Albumin 4.1 (3.0-4.8) g/dL Globulin 3.9 gm/dL Albumin/Globulin Ratio 1.1 (1.1-1.8) Triglycerides 147 (35-160) mg/dL Cholesterol 168 (130-200) mg/dL LDL Cholesterol Direct 84 (0-129) mg/dL HDL Cholesterol 43 (29-60) mg/dL Urine Color (YELLOW) Urine Appearance (CLEAR) Urine pH (4.7-8.0) Ur Specific [place] (1.005-1.035) Urine Protein (<30 mg/dL) mg/dL Urine Glucose (UA) (NEGATIVE) mg/dL Urine Ketones (NEGATIVE) mg/dL Urine Blood (NEGATIVE) Urine Nitrate (NEGATIVE) Urine Bilirubin (NEGATIVE) Urine Urobilinogen (<1 E.U./dL) E.U./dL Ur Leukocyte Esterase (NEGATIVE) Geovani/uL Urine RBC (0-2) /hpf Urine WBC (0-6) /hpf Ur Epithelial Cells (0-5) /hpf Urine Bacteria (NONE) /hpf Blood Type Antibody Screen BBK History Checked 02/21/19 Range/Units 17:44 WBC (4.5-11.0) 10^3/uL RBC (3.5-6.1) 10^6/uL Hgb (12.0-16.0) g/dL Hct (36.0-48.0) % MCV (80.0-105.0) fl MCH (25.0-35.0) pg MCHC (31.0-37.0) g/dl RDW (11.5-14.5) % Plt Count (120.0-450.0) 10^3/uL MPV (7.0-11.0) fl Neut % (Auto) (50.0-68.0) % Lymph % (Auto) (22.0-35.0) % [place] % (Auto) (1.0-6.0) % Eos % (Auto) (1.5-5.0) % Baso % (Auto) (0.0-3.0) % Lymph # (Auto) (1.2-3.4) [place] # (Auto) (0.1-0.6) Eos # (Auto) (0.0-0.7) Baso # (Auto) (0.0-2.0) K/mm3 Absolute Neuts (auto) (1.4-6.5) PT (9.4-12.5) SECONDS INR APTT (26.9-38.3) Seconds Sodium (132-148) mmol/L Potassium (3.6-5.0) mmol/L Chloride (98-107) mmol/L Carbon Dioxide (21-33) mmol/L Anion Gap (10-20) BUN (7-21) mg/dL Creatinine (0.7-1.2) mg/dl Est GFR ( Amer) Est GFR (Non-Af Amer) POC Glucose (mg/dL) 109 (65-110) mg/dL Random Glucose (70-110) mg/dL Calcium (8.4-10.5) mg/dL Total Bilirubin (0.2-1.3) mg/dL AST (14-36) U/L ALT (7-56) U/L Alkaline Phosphatase (38-126) U/L Troponin I ng/mL Total Protein (5.8-8.3) g/dL Albumin (3.0-4.8) g/dL Globulin gm/dL Albumin/Globulin Ratio (1.1-1.8) Triglycerides (35-160) mg/dL Cholesterol (130-200) mg/dL LDL Cholesterol Direct (0-129) mg/dL HDL Cholesterol (29-60) mg/dL Urine Color (YELLOW) Urine Appearance (CLEAR) Urine pH (4.7-8.0) Ur Specific [place] (1.005-1.035) Urine Protein (<30 mg/dL) mg/dL Urine Glucose (UA) (NEGATIVE) mg/dL Urine Ketones (NEGATIVE) mg/dL Urine Blood (NEGATIVE) Urine Nitrate (NEGATIVE) Urine Bilirubin (NEGATIVE) Urine Urobilinogen (<1 E.U./dL) E.U./dL Ur Leukocyte Esterase (NEGATIVE) Geovani/uL Urine RBC (0-2) /hpf Urine WBC (0-6) /hpf Ur Epithelial Cells (0-5) /hpf Urine Bacteria (NONE) /hpf Blood Type Antibody Screen BBK History Checked Laboratory Results - last 24 hr 02/21/19 02/21/19 02/21/19 17:44 18:43 18:43 WBC 7.8 RBC 4.38 Hgb 12.0 Hct 37.9 MCV 86.5 MCH 27.4 MCHC 31.7 RDW 14.6 H Plt Count 399 MPV 9.7 Neut % (Auto) 39.2 L Lymph % (Auto) 49.9 H [place] % (Auto) 9.7 H Eos % (Auto) 0.8 L Baso % (Auto) 0.4 Lymph # (Auto) 3.9 H [place] # (Auto) 0.8 H Eos # (Auto) 0.1 Baso # (Auto) 0.03 Absolute Neuts (auto) 3.05 PT 13.8 H INR 1.24 APTT 38.5 H Sodium Potassium Chloride Carbon Dioxide Anion Gap BUN Creatinine Est GFR ( Amer) Est GFR (Non-Af Amer) POC Glucose (mg/dL) 109 Random Glucose Calcium Total Bilirubin AST ALT Alkaline Phosphatase Troponin I Total Protein Albumin Globulin Albumin/Globulin Ratio Triglycerides Cholesterol LDL Cholesterol Direct HDL Cholesterol Urine Color Urine Appearance Urine pH Ur Specific [place] Urine Protein Urine Glucose (UA) Urine Ketones Urine Blood Urine Nitrate Urine Bilirubin Urine Urobilinogen Ur Leukocyte Esterase Urine RBC Urine WBC Ur Epithelial Cells Urine Bacteria Blood Type Antibody Screen BBK History Checked 02/21/19 02/21/19 02/21/19 18:43 18:53 19:30 WBC RBC Hgb Hct MCV MCH MCHC RDW Plt Count MPV Neut % (Auto) Lymph % (Auto) [place] % (Auto) Eos % (Auto) Baso % (Auto) Lymph # (Auto) [place] # (Auto) Eos # (Auto) Baso # (Auto) Absolute Neuts (auto) PT INR APTT Sodium 142 Potassium 3.6 Chloride 102 Carbon Dioxide 34 H Anion Gap 10 BUN 12 Creatinine 0.9 Est GFR ( Amer) > 60 Est GFR (Non-Af Amer) > 60 POC Glucose (mg/dL) Random Glucose 99 Calcium 9.2 Total Bilirubin 0.4 AST 38 H ALT 19 Alkaline Phosphatase 68 Troponin I < 0.01 Total Protein 7.9 Albumin 4.1 Globulin 3.9 Albumin/Globulin Ratio 1.1 Triglycerides 147 Cholesterol 168 LDL Cholesterol Direct 84 HDL Cholesterol 43 Urine Color Urine Appearance Urine pH Ur Specific [place] Urine Protein Urine Glucose (UA) Urine Ketones Urine Blood Urine Nitrate Urine Bilirubin Urine Urobilinogen Ur Leukocyte Esterase Urine RBC Urine WBC Ur Epithelial Cells Urine Bacteria Blood Type O POSITIVE O POSITIVE Antibody Screen Negative BBK History Checked No verified bt Patient has bt 02/21/19 21:10 WBC RBC Hgb Hct MCV MCH MCHC RDW Plt Count MPV Neut % (Auto) Lymph % (Auto) [place] % (Auto) Eos % (Auto) Baso % (Auto) Lymph # (Auto) [place] # (Auto) Eos # (Auto) Baso # (Auto) Absolute Neuts (auto) PT INR APTT Sodium Potassium Chloride Carbon Dioxide Anion Gap BUN Creatinine Est GFR ( Amer) Est GFR (Non-Af Amer) POC Glucose (mg/dL) Random Glucose Calcium Total Bilirubin AST ALT Alkaline Phosphatase Troponin I Total Protein Albumin Globulin Albumin/Globulin Ratio Triglycerides Cholesterol LDL Cholesterol Direct HDL Cholesterol Urine Color Yellow Urine Appearance Clear Urine pH 6.5 Ur Specific [place] 1.025 Urine Protein 30 H Urine Glucose (UA) Negative Urine Ketones Negative Urine Blood Trace-intact H Urine Nitrate Negative Urine Bilirubin Negative Urine Urobilinogen 0.2 Ur Leukocyte Esterase Negative Urine RBC 2 - 5 H Urine WBC 1 - 3 Ur Epithelial Cells 4 - 5 Urine Bacteria Few Blood Type Antibody Screen BBK History Checked Radiology Impressions: Radiology Impressions Head CT 02/21/19 17:52 IMPRESSION: Suboptimal evaluation due to patient motion. Nonspecific vague hypodense region within the right vertex; while this finding is favored to be artifactual due to patient motion, acute ischemic change cannot be excluded. Correlate with clinical presentation. Please note that MRI with diffusion imaging is more sensitive in the detection of acute ischemic event. Generalized atrophy. Moderate nonspecific white matter changes. Results were discussed with WALLACE Duvall on 02/21/19 at 6:19 p.m. as the ordering physician was unavailable in a procedure. Head/Neck CTA 02/21/19 18:58 IMPRESSION: No significant carotid or vertebral stenosis CT Angiography of the Brain. HISTORY: LUE and drooling COMPARISON: None available. TECHNIQUE: CT angiography of the intracranial arteries was performed. Coronal and sagittal maximum intensity projection reformated images were generated. Radiation dose: Total exam DLP = 643.63 mGy-cm. This CT exam was performed using one or more of the following dose reduction techniques: Automated exposure control, adjustment of the mA and/or kV according to patient size, and/or use of iterative reconstruction technique. FINDINGS: INTERNAL CEREBRAL ARTERIES: Unremarkable. The skull base, petrous, cavernous and supraclinoid segments are bilaterally widely patent. ANTERIOR CEREBRAL ARTERIES: Unremarkable. A1 and A2 segments are widely patent. Smaller distal branches unremarkable, as visualized. MIDDLE CEREBRAL ARTERIES: Unremarkable. M1 and M2 segments are widely patent. Perisylvian branches grossly symmetric. POSTERIOR CIRCULATION: Basilar Artery: Unremarkable. Distal Vertebral Arteries: Unremarkable. Posterior Cerebral Arteries: Unremarkable. Posterior Inferior Cerebellar Arteries: Unremarkable. ANEURYSM/ VASCULAR MALFORMATIONS: None. OTHER FINDINGS: The report concurs with the preliminary [facility] report IMPRESSION: Unremarkable CT Angiography of the Brain. EKG/Cardiology Studies: Cardiology / EKG Studies 02/21/19 18:08 EKG [ELECTROCARDIOGRAM] Stat Comment: Reason For Exam: POSSIBLE STROKE Fingerstick Blood Sugar Results: 109 Review of Systems - Review of Systems Review of Systems: 12 point ROS completed and negative except as described above. Critical Care Progress Note - Nutrition Nutrition: Nutrition Category Date Time Status NPO Diet [DIET] Diets 02/21/19 Dinner Ordered Assessment/Plan - Assessment and Plan (Free Text) Assessment: 79 year old, right handed female with a past medical history of hypertension, mild dementia, and heart murmur who presented with left facial droop, slurred speech, and left arm weakness, s/p TPa administration last night. Neuro: -02/21/19 CT head can't r/o acute ischemic changes -02/22/19 CTA head/neck: unremarkable, no significant carotid or vertebral stenosis -AAOx3, moving extremities past midline. -Monitor neuro status. -Neuro consult Dr. Del Rio - further recs appreciated -F/U MRI brain and echo Cardio: -S/P TPA -RRR, normotensive, no signs of HD compromise -Nicardipine drip discontinued, maintain sBP <180 -F/U Echo for possible embolic source -Maintain MAP >65. -Monitor for S/S, HD compromise. Pulm: -No signs of respiratory distress. CTA B/L -Maintain O2 saturation>92%. -O2 NC PRN -02/21/19 CXR: linear atelectasis at R lung base -Elevate bed to 30 degrees GI: -NPO, pending swallow eval -Protonix IV BID /Nephro: -BUN/Cr stable -UA benign -Good urine output -Continue monitoring. -Maintain euvolemia. Endocrinology: -Random glucose: 109 -Maintain euglycemia Heme/Onc: -H/H stable -ASA on hold after bloody BM -No signs of HD compromise. -Continue monitoring H/H ID: -Afebrile, no leukocytosis -Monitor for signs and symptoms of infection. DVT prophylaxis: No chemoprophylaxis in setting of tPa Patient seen, case reviewed and plan approved by Dr. Denis. Abhishek Rodriguez, PGY-1 <Jonathan Denis - Last Filed: 02/22/19 13:40> CCU Objective - Vital Signs / Intake & Output Vital Signs (Last 4 hours): Vital Signs Pulse Resp BP Pulse Ox 02/22/19 10:46 88 21 103/73 100 02/22/19 10:30 92 H 74 H 115/62 85 L 02/22/19 10:15 92 H 25 H 116/67 100 02/22/19 10:00 87 25 H 86/51 L 98 02/22/19 09:45 84 14 99/53 L 100 Intake and Output (Last 8hrs): Intake & Output 02/21/19 02/22/19 02/22/19 22:59 06:59 14:59 Intake Total 55 950 Output Total 1700 Balance 55 -750 Weight 175 lb 9.6 oz 172 lb 12.8 oz Intake: IV 55 950 Right Hand 800 Output: Urine 1700 Urethral (Johnson) 1700 - Medications Active Medications: Active Medications Generic Name Dose Route Start Last Admin Trade Name Freq PRN Reason Stop Dose Admin Aspirin 81 mg 02/22/19 10:00 02/22/19 09:11 Ecotrin PO Not Given DAILY [facility] Atorvastatin Calcium 40 mg 02/22/19 17:00 Lipitor PO DIN MARIANN Donepezil HCl 10 mg 02/22/19 10:00 02/22/19 09:11 Aricept PO Not Given DAILY MARIANN Metoprolol Succinate 50 mg 02/22/19 18:00 Toprol Xl PO QPM MARIANN Pantoprazole Sodium 40 mg 02/22/19 10:30 02/22/19 11:08 Protonix Inj IVP 40 mg Q12 MARIANN Administration Tolterodine Tartrate 4 mg 02/22/19 10:00 02/22/19 09:11 Detrol La PO Not Given DAILY MARIANN - Patient Studies Lab Studies: Lab Studies 02/21/19 02/21/19 02/21/19 Range/Units 21:10 19:30 18:53 WBC (4.5-11.0) 10^3/uL RBC (3.5-6.1) 10^6/uL Hgb (12.0-16.0) g/dL Hct (36.0-48.0) % MCV (80.0-105.0) fl MCH (25.0-35.0) pg MCHC (31.0-37.0) g/dl RDW (11.5-14.5) % Plt Count (120.0-450.0) 10^3/uL MPV (7.0-11.0) fl Neut % (Auto) (50.0-68.0) % Lymph % (Auto) (22.0-35.0) % [place] % (Auto) (1.0-6.0) % Eos % (Auto) (1.5-5.0) % Baso % (Auto) (0.0-3.0) % Lymph # (Auto) (1.2-3.4) [place] # (Auto) (0.1-0.6) Eos # (Auto) (0.0-0.7) Baso # (Auto) (0.0-2.0) K/mm3 Absolute Neuts (auto) (1.4-6.5) PT (9.4-12.5) SECONDS INR APTT (26.9-38.3) Seconds Sodium (132-148) mmol/L Potassium (3.6-5.0) mmol/L Chloride (98-107) mmol/L Carbon Dioxide (21-33) mmol/L Anion Gap (10-20) BUN (7-21) mg/dL Creatinine (0.7-1.2) mg/dl Est GFR ( Amer) Est GFR (Non-Af Amer) POC Glucose (mg/dL) (65-110) mg/dL Random Glucose (70-110) mg/dL Calcium (8.4-10.5) mg/dL Total Bilirubin (0.2-1.3) mg/dL AST (14-36) U/L ALT (7-56) U/L Alkaline Phosphatase (38-126) U/L Troponin I ng/mL Total Protein (5.8-8.3) g/dL Albumin (3.0-4.8) g/dL Globulin gm/dL Albumin/Globulin Ratio (1.1-1.8) Triglycerides (35-160) mg/dL Cholesterol (130-200) mg/dL LDL Cholesterol Direct (0-129) mg/dL HDL Cholesterol (29-60) mg/dL Urine Color Yellow (YELLOW) Urine Appearance Clear (CLEAR) Urine pH 6.5 (4.7-8.0) Ur Specific [place] 1.025 (1.005-1.035) Urine Protein 30 H (<30 mg/dL) mg/dL Urine Glucose (UA) Negative (NEGATIVE) mg/dL Urine Ketones Negative (NEGATIVE) mg/dL Urine Blood Trace-intact H (NEGATIVE) Urine Nitrate Negative (NEGATIVE) Urine Bilirubin Negative (NEGATIVE) Urine Urobilinogen 0.2 (<1 E.U./dL) E.U./dL Ur Leukocyte Esterase Negative (NEGATIVE) Geovani/uL Urine RBC 2 - 5 H (0-2) /hpf Urine WBC 1 - 3 (0-6) /hpf Ur Epithelial Cells 4 - 5 (0-5) /hpf Urine Bacteria Few (NONE) /hpf Blood Type O POSITIVE O POSITIVE Antibody Screen Negative BBK History Checked Patient has bt No verified bt 02/21/19 02/21/19 02/21/19 Range/Units 18:43 18:43 18:43 WBC 7.8 (4.5-11.0) 10^3/uL RBC 4.38 (3.5-6.1) 10^6/uL Hgb 12.0 (12.0-16.0) g/dL Hct 37.9 (36.0-48.0) % MCV 86.5 (80.0-105.0) fl MCH 27.4 (25.0-35.0) pg MCHC 31.7 (31.0-37.0) g/dl RDW 14.6 H (11.5-14.5) % Plt Count 399 (120.0-450.0) 10^3/uL MPV 9.7 (7.0-11.0) fl Neut % (Auto) 39.2 L (50.0-68.0) % Lymph % (Auto) 49.9 H (22.0-35.0) % [place] % (Auto) 9.7 H (1.0-6.0) % Eos % (Auto) 0.8 L (1.5-5.0) % Baso % (Auto) 0.4 (0.0-3.0) % Lymph # (Auto) 3.9 H (1.2-3.4) [place] # (Auto) 0.8 H (0.1-0.6) Eos # (Auto) 0.1 (0.0-0.7) Baso # (Auto) 0.03 (0.0-2.0) K/mm3 Absolute Neuts (auto) 3.05 (1.4-6.5) PT 13.8 H (9.4-12.5) SECONDS INR 1.24 APTT 38.5 H (26.9-38.3) Seconds Sodium 142 (132-148) mmol/L Potassium 3.6 (3.6-5.0) mmol/L Chloride 102 (98-107) mmol/L Carbon Dioxide 34 H (21-33) mmol/L Anion Gap 10 (10-20) BUN 12 (7-21) mg/dL Creatinine 0.9 (0.7-1.2) mg/dl Est GFR ( Amer) > 60 Est GFR (Non-Af Amer) > 60 POC Glucose (mg/dL) (65-110) mg/dL Random Glucose 99 (70-110) mg/dL Calcium 9.2 (8.4-10.5) mg/dL Total Bilirubin 0.4 (0.2-1.3) mg/dL AST 38 H (14-36) U/L ALT 19 (7-56) U/L Alkaline Phosphatase 68 (38-126) U/L Troponin I < 0.01 ng/mL Total Protein 7.9 (5.8-8.3) g/dL Albumin 4.1 (3.0-4.8) g/dL Globulin 3.9 gm/dL Albumin/Globulin Ratio 1.1 (1.1-1.8) Triglycerides 147 (35-160) mg/dL Cholesterol 168 (130-200) mg/dL LDL Cholesterol Direct 84 (0-129) mg/dL HDL Cholesterol 43 (29-60) mg/dL Urine Color (YELLOW) Urine Appearance (CLEAR) Urine pH (4.7-8.0) Ur Specific [place] (1.005-1.035) Urine Protein (<30 mg/dL) mg/dL Urine Glucose (UA) (NEGATIVE) mg/dL Urine Ketones (NEGATIVE) mg/dL Urine Blood (NEGATIVE) Urine Nitrate (NEGATIVE) Urine Bilirubin (NEGATIVE) Urine Urobilinogen (<1 E.U./dL) E.U./dL Ur Leukocyte Esterase (NEGATIVE) Geovani/uL Urine RBC (0-2) /hpf Urine WBC (0-6) /hpf Ur Epithelial Cells (0-5) /hpf Urine Bacteria (NONE) /hpf Blood Type Antibody Screen BBK History Checked 02/21/19 Range/Units 17:44 WBC (4.5-11.0) 10^3/uL RBC (3.5-6.1) 10^6/uL Hgb (12.0-16.0) g/dL Hct (36.0-48.0) % MCV (80.0-105.0) fl MCH (25.0-35.0) pg MCHC (31.0-37.0) g/dl RDW (11.5-14.5) % Plt Count (120.0-450.0) 10^3/uL MPV (7.0-11.0) fl Neut % (Auto) (50.0-68.0) % Lymph % (Auto) (22.0-35.0) % [place] % (Auto) (1.0-6.0) % Eos % (Auto) (1.5-5.0) % Baso % (Auto) (0.0-3.0) % Lymph # (Auto) (1.2-3.4) [place] # (Auto) (0.1-0.6) Eos # (Auto) (0.0-0.7) Baso # (Auto) (0.0-2.0) K/mm3 Absolute Neuts (auto) (1.4-6.5) PT (9.4-12.5) SECONDS INR APTT (26.9-38.3) Seconds Sodium (132-148) mmol/L Potassium (3.6-5.0) mmol/L Chloride (98-107) mmol/L Carbon Dioxide (21-33) mmol/L Anion Gap (10-20) BUN (7-21) mg/dL Creatinine (0.7-1.2) mg/dl Est GFR ( Amer) Est GFR (Non-Af Amer) POC Glucose (mg/dL) 109 (65-110) mg/dL Random Glucose (70-110) mg/dL Calcium (8.4-10.5) mg/dL Total Bilirubin (0.2-1.3) mg/dL AST (14-36) U/L ALT (7-56) U/L Alkaline Phosphatase (38-126) U/L Troponin I ng/mL Total Protein (5.8-8.3) g/dL Albumin (3.0-4.8) g/dL Globulin gm/dL Albumin/Globulin Ratio (1.1-1.8) Triglycerides (35-160) mg/dL Cholesterol (130-200) mg/dL LDL Cholesterol Direct (0-129) mg/dL HDL Cholesterol (29-60) mg/dL Urine Color (YELLOW) Urine Appearance (CLEAR) Urine pH (4.7-8.0) Ur Specific [place] (1.005-1.035) Urine Protein (<30 mg/dL) mg/dL Urine Glucose (UA) (NEGATIVE) mg/dL Urine Ketones (NEGATIVE) mg/dL Urine Blood (NEGATIVE) Urine Nitrate (NEGATIVE) Urine Bilirubin (NEGATIVE) Urine Urobilinogen (<1 E.U./dL) E.U./dL Ur Leukocyte Esterase (NEGATIVE) Geovani/uL Urine RBC (0-2) /hpf Urine WBC (0-6) /hpf Ur Epithelial Cells (0-5) /hpf Urine Bacteria (NONE) /hpf Blood Type Antibody Screen BBK History Checked Laboratory Results - last 24 hr 02/21/19 02/21/19 02/21/19 17:44 18:43 18:43 WBC 7.8 RBC 4.38 Hgb 12.0 Hct 37.9 MCV 86.5 MCH 27.4 MCHC 31.7 RDW 14.6 H Plt Count 399 MPV 9.7 Neut % (Auto) 39.2 L Lymph % (Auto) 49.9 H [place] % (Auto) 9.7 H Eos % (Auto) 0.8 L Baso % (Auto) 0.4 Lymph # (Auto) 3.9 H Dade # (Auto) 0.8 H Eos # (Auto) 0.1 Baso # (Auto) 0.03 Absolute Neuts (auto) 3.05 PT 13.8 H INR 1.24 APTT 38.5 H Sodium Potassium Chloride Carbon Dioxide Anion Gap BUN Creatinine Est GFR ( Amer) Est GFR (Non-Af Amer) POC Glucose (mg/dL) 109 Random Glucose Calcium Total Bilirubin AST ALT Alkaline Phosphatase Troponin I Total Protein Albumin Globulin Albumin/Globulin Ratio Triglycerides Cholesterol LDL Cholesterol Direct HDL Cholesterol Urine Color Urine Appearance Urine pH Ur Specific [place] Urine Protein Urine Glucose (UA) Urine Ketones Urine Blood Urine Nitrate Urine Bilirubin Urine Urobilinogen Ur Leukocyte Esterase Urine RBC Urine WBC Ur Epithelial Cells Urine Bacteria Blood Type Antibody Screen BBK History Checked 02/21/19 02/21/19 02/21/19 18:43 18:53 19:30 WBC RBC Hgb Hct MCV MCH MCHC RDW Plt Count MPV Neut % (Auto) Lymph % (Auto) Dade % (Auto) Eos % (Auto) Baso % (Auto) Lymph # (Auto) Dade # (Auto) Eos # (Auto) Baso # (Auto) Absolute Neuts (auto) PT INR APTT Sodium 142 Potassium 3.6 Chloride 102 Carbon Dioxide 34 H Anion Gap 10 BUN 12 Creatinine 0.9 Est GFR ( Amer) > 60 Est GFR (Non-Af Amer) > 60 POC Glucose (mg/dL) Random Glucose 99 Calcium 9.2 Total Bilirubin 0.4 AST 38 H ALT 19 Alkaline Phosphatase 68 Troponin I < 0.01 Total Protein 7.9 Albumin 4.1 Globulin 3.9 Albumin/Globulin Ratio 1.1 Triglycerides 147 Cholesterol 168 LDL Cholesterol Direct 84 HDL Cholesterol 43 Urine Color Urine Appearance Urine pH Ur Specific [place] Urine Protein Urine Glucose (UA) Urine Ketones Urine Blood Urine Nitrate Urine Bilirubin Urine Urobilinogen Ur Leukocyte Esterase Urine RBC Urine WBC Ur Epithelial Cells Urine Bacteria Blood Type O POSITIVE O POSITIVE Antibody Screen Negative BBK History Checked No verified bt Patient has bt 02/21/19 21:10 WBC RBC Hgb Hct MCV MCH MCHC RDW Plt Count MPV Neut % (Auto) Lymph % (Auto) [place] % (Auto) Eos % (Auto) Baso % (Auto) Lymph # (Auto) Dade # (Auto) Eos # (Auto) Baso # (Auto) Absolute Neuts (auto) PT INR APTT Sodium Potassium Chloride Carbon Dioxide Anion Gap BUN Creatinine Est GFR ( Amer) Est GFR (Non-Af Amer) POC Glucose (mg/dL) Random Glucose Calcium Total Bilirubin AST ALT Alkaline Phosphatase Troponin I Total Protein Albumin Globulin Albumin/Globulin Ratio Triglycerides Cholesterol LDL Cholesterol Direct HDL Cholesterol Urine Color Yellow Urine Appearance Clear Urine pH 6.5 Ur Specific [place] 1.025 Urine Protein 30 H Urine Glucose (UA) Negative Urine Ketones Negative Urine Blood Trace-intact H Urine Nitrate Negative Urine Bilirubin Negative Urine Urobilinogen 0.2 Ur Leukocyte Esterase Negative Urine RBC 2 - 5 H Urine WBC 1 - 3 Ur Epithelial Cells 4 - 5 Urine Bacteria Few Blood Type Antibody Screen BBK History Checked Radiology Impressions: Radiology Impressions Head CT 02/21/19 17:52 IMPRESSION: Suboptimal evaluation due to patient motion. Nonspecific vague hypodense region within the right vertex; while this finding is favored to be artifactual due to patient motion, acute ischemic change cannot be excluded. Correlate with clinical presentation. Please note that MRI with diffusion imaging is more sensitive in the detection of acute ischemic event. Generalized atrophy. Moderate nonspecific white matter changes. Results were discussed with WALLACE Duvall on 02/21/19 at 6:19 p.m. as the ordering physician was unavailable in a procedure. Chest X-Ray 02/21/19 18:29 IMPRESSION: Linear atelectasis at the right lung base Head/Neck CTA 02/21/19 18:58 IMPRESSION: No significant carotid or vertebral stenosis CT Angiography of the Brain. HISTORY: LUE and drooling COMPARISON: None available. TECHNIQUE: CT angiography of the intracranial arteries was performed. Coronal and sagittal maximum intensity projection reformated images were generated. Radiation dose: Total exam DLP = 643.63 mGy-cm. This CT exam was performed using one or more of the following dose reduction techniques: Automated exposure control, adjustment of the mA and/or kV according to patient size, and/or use of iterative reconstruction technique. FINDINGS: INTERNAL CEREBRAL ARTERIES: Unremarkable. The skull base, petrous, cavernous and supraclinoid segments are bilaterally widely patent. ANTERIOR CEREBRAL ARTERIES: Unremarkable. A1 and A2 segments are widely patent. Smaller distal branches unremarkable, as visualized. MIDDLE CEREBRAL ARTERIES: Unremarkable. M1 and M2 segments are widely patent. Perisylvian branches grossly symmetric. POSTERIOR CIRCULATION: Basilar Artery: Unremarkable. Distal Vertebral Arteries: Unremarkable. Posterior Cerebral Arteries: Unremarkable. Posterior Inferior Cerebellar Arteries: Unremarkable. ANEURYSM/ VASCULAR MALFORMATIONS: None. OTHER FINDINGS: The report concurs with the preliminary [facility] report IMPRESSION: Unremarkable CT Angiography of the Brain. EKG/Cardiology Studies: Cardiology / EKG Studies 02/21/19 18:08 EKG [ELECTROCARDIOGRAM] Stat Comment: Reason For Exam: POSSIBLE STROKE Critical Care Progress Note - Nutrition Nutrition: Nutrition Category Date Time Status Dysphagia/Modified Consistency Diet [DIET] Diets 02/22/19 Dinner Ordered NPO Diet [DIET] Diets 02/21/19 Dinner Ordered Assessment/Plan - Assessment and Plan (Free Text) Assessment: I saw and examined the patient on rounds with resident, agree with note with following additions/exceptions: Patient is 79yo female with PMHX hypertension, mild dementia, and heart murmur who presented with left facial droop, slurred speech, and left arm weakness, s/p TPa administration Currently afebrile, HD stable, comfortable in NAD, OFF cardene drip Motor 4/5 all ext, equal Speech swallow pending repeat CTH tonight pending CVA s/p tPA HTN HLD Recommend: - supp o2 as needed, duonebs PRN - NO ID issues - BP control - FS control - ECHO - TSH, lipid panel. HgBA1C - neuro follow up - MRI brain - GI ppx - DVT ppx, SCDs - Monitor in MICU
--- NOTE | 2019-02-22 08:30 | RAD ---
Date of service: 02/21/2019 HISTORY: Code Stroke COMPARISON: 12/26/2018 TECHNIQUE: 1 view obtained. FINDINGS: LUNGS: Linear infiltrates are seen at the right lung base consistent with atelectasis. PLEURA: No significant pleural effusion identified, no pneumothorax apparent. CARDIOVASCULAR: No aortic atherosclerotic calcification present. Normal cardiac size. No pulmonary vascular congestion. OSSEOUS STRUCTURES: No significant abnormalities. VISUALIZED UPPER ABDOMEN: Normal. OTHER FINDINGS: None. IMPRESSION: Linear atelectasis at the right lung base
[2019-02-22] MEDS: Tolterodine 4 mg ER Cap PO SCH (09:11)
--- NOTE | 2019-02-22 10:41 | CARD ---
APPROVED REPORT Date of service: 02/21/2019 EKG Measurement Heart [id number] <Conclusion> Normal sinus rhythm with sinus arrhythmia Cannot rule out Anterior infarct, age undetermined Abnormal ECG
--- NOTE | 2019-02-22 11:35 | CP.PCM.PCO ---
Additional Comments - Additional Comments Additional Comments: Pt is an 79 y.o. female with pmhx of HTN, mild dementia, and heart murmur who presented with left facial droop, slurred speech, and left arm weakness noted by daughter. She was given TPA in ED. Today, pt was seen and examined at bedside. She is awake and alert. +slurred speech and L side weakness. She denies dizziness, headache, chest pain or shortness of breath. MRI of brain and ECHO pending. Neuro on consult. Will continue to follow. Impressions Head CT 02/21/19 17:52 IMPRESSION: Suboptimal evaluation due to patient motion. Nonspecific vague hypodense region within the right vertex; while this finding is favored to be artifactual due to patient motion, acute ischemic change cannot be excluded. Correlate with clinical presentation. Please note that MRI with diffusion imaging is more sensitive in the detection of acute ischemic event. Generalized atrophy. Moderate nonspecific white matter changes. Results were discussed with WALLACE Duvall on 02/21/19 at 6:19 p.m. as the ordering physician was unavailable in a procedure. Chest X-Ray 02/21/19 18:29 IMPRESSION: Linear atelectasis at the right lung base Head/Neck CTA 02/21/19 18:58 IMPRESSION: No significant carotid or vertebral stenosis CT Angiography of the Brain. HISTORY: LUE and drooling COMPARISON: None available. TECHNIQUE: CT angiography of the intracranial arteries was performed. Coronal and sagittal maximum intensity projection reformated images were generated. Radiation dose: Total exam DLP = 643.63 mGy-cm. This CT exam was performed using one or more of the following dose reduction techniques: Automated exposure control, adjustment of the mA and/or kV according to patient size, and/or use of iterative reconstruction technique. FINDINGS: INTERNAL CEREBRAL ARTERIES: Unremarkable. The skull base, petrous, cavernous and supraclinoid segments are bilaterally widely patent. ANTERIOR CEREBRAL ARTERIES: Unremarkable. A1 and A2 segments are widely patent. Smaller distal branches unremarkable, as visualized. MIDDLE CEREBRAL ARTERIES: Unremarkable. M1 and M2 segments are widely patent. Perisylvian branches grossly symmetric. POSTERIOR CIRCULATION: Basilar Artery: Unremarkable. Distal Vertebral Arteries: Unremarkable. Posterior Cerebral Arteries: Unremarkable. Posterior Inferior Cerebellar Arteries: Unremarkable. ANEURYSM/ VASCULAR MALFORMATIONS: None. OTHER FINDINGS: The report concurs with the preliminary [facility] report IMPRESSION: Unremarkable CT Angiography of the Brain.
--- NOTE | 2019-02-22 13:46 | HP ---
DATE OF EXAM: 02/22/2019 HISTORY OF PRESENT ILLNESS: This is an 79-year-old female who is coming in to the emergency room complaining of left-sided weakness. The patient has a past medical history of hypertension and mild dementia. She was having left-sided facial droop with slurred speech. She was having left arm weakness, this was noted at 5:30 p.m. yesterday by her daughter. The patient came in and was evaluated and was given tPA because of an acute CVA. The patient is able to speak this morning. She is able to move her left arm. She has no complaints of any chest pain. No shortness of breath. No abdominal pain. No back pain. No dysuria or frequency. No nocturia. She does have weakness in the left arm, but says that she is improving. REVIEW OF SYSTEMS: All of the review of systems are within normal limits except as mentioned. ALLERGIES: NO KNOWN DRUG ALLERGIES. HOME MEDICATIONS: Aspirin, omeprazole, Detrol, atorvastatin and metoprolol. SOCIAL HISTORY: She does not smoke, drink or use drugs. FAMILY HISTORY: Noncontributory. PAST MEDICAL HISTORY: As above. PHYSICAL EXAMINATION: VITAL SIGNS: Temperature is 98.7, pulse of 98, blood pressure 114/71, respiration is 17 and O2 saturation is 94%. Height is 5 feet 9 inches. Weight is 172 pounds. GENERAL: The patient is lying in bed, comfortable, and in no acute distress. HEENT: Atraumatic and normocephalic. Anicteric sclerae. Moist mucosa. [place] conjunctivae. No oral lesions. NECK: No JVD, anterior and posterior adenopathy, thyromegaly, or bruits. CARDIOVASCULAR: S1 and S2 regular. No murmurs, rubs or gallops. LUNGS: Clear to auscultation bilaterally. No wheezes, rales, or rhonchi. ABDOMEN: Bowel sounds are positive. Soft, nontender and nondistended. No hepatosplenomegaly. No rebound and no guarding. EXTREMITIES: No cyanosis, clubbing, or edema. NEUROLOGIC: Left arm, there is 4/5 power. PSYCHIATRIC: She is awake, alert and oriented x3. No anxiety or depression. She has normal affect. GENITOURINARY: No CVA tenderness. VASCULAR: 2+ pulses in the carotid pulses and pedal pulses. SKIN: No erythema or nodules. SPINE: Shows normal curvature. LABORATORY DATA: White count of 7.8 and hemoglobin is 12. INR is 1.2. Chemistry shows the sodium of 142, potassium 3.6, creatinine 0.9 and alk phos is 68. Urine shows glucose is negative. Ketones are negative. Nitrates are negative. CT of the head and neck shows it is unremarkable. CT angiogram . Chest x-ray done shows linear atelectasis at the right lung base. CT of the head is suboptimal, does not lesion within the right vertex while these finding. ASSESSMENT: 1. 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 2. Dyslipidemia. 3. Urinary incontinence. 4. 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 PLAN: The patient was admitted to the hospital because of an acute CVA, she was given tPA. The patient seems to have improvement of her symptoms as the facial asymmetry is no longer present. The patient had elevated blood pressure in the emergency room. She is currently in the ICU. She is on Aricept for her dementia. She is going to be on aspirin. The patient is on Lipitor for dyslipidemia. She has an MRI of the brain that has been ordered. The patient has an echo that has been ordered as well. She currently is n.p.o. I will have Neurology follow the patient. The patient will remain in the ICU. Oziel Loredo MD
--- NOTE | 2019-02-22 14:11 | MRI ---
Date of service: 02/22/2019 PROCEDURE: MRI BRAIN WITHOUT CONTRAST HISTORY: stroke right mca COMPARISON: CT 02/21/2019 TECHNIQUE: Multiplanar, multisequence MR images of the brain were obtained without intravenous contrast enhancement. FINDINGS: HEMORRHAGE: None DWI: There is a small acute cortical infarct in the right posterior frontal lobe. This measures 17 x 17 mm BRAIN PARENCHYMA: No mass effect or edema. Chronic microvascular changes are seen in the periventricular white matter. There is mild atrophy VENTRICLES: Unremarkable. No hydrocephalus. CRANIUM: Unremarkable. ORBITS: Grossly unremarkable. PARANASAL SINUSES/MASTOIDS: Clear VASCULAR SYSTEM: Skull base flow voids intact. OTHER FINDINGS: None. IMPRESSION: There is a small acute cortical infarct in the right posterior frontal lobe. This measures 17 x 17 mm
[2019-02-22] MEDS: guaiFENesin DM 100 mg-10 mg/5 ml UD PO PRN (17:29)
[2019-02-22] MEDS: Metoprolol Succinate 50 mg XL Tab PO SCH (17:29)
--- NOTE | 2019-02-22 17:40 | CARD ---
APPROVED REPORT Date of service: 02/22/2019 EXAM: Two-dimensional and M-mode echocardiogram with Doppler and color Doppler. INDICATION STROKE RT MCA 2D DIMENSIONS Left Atrium (2D)5.6 (1.6-4.0cm)IVSd1.1 (0.7-1.1cm) LVDd3.2 (3.9-5.9cm)PWd1.2 (0.7-1.1cm) LVDs2.2 (2.5-4.0cm)FS (%) 33.0 % LVEF (%)63.0 (>50%) M-Mode DIMENSIONS Aortic Root3.10 (2.2-3.7cm)Aortic Cusp Exc.1.50 (1.5-2.0cm) Aortic Valve AoV Peak Dxnhepcu577.0cm/sAoV VTI29.4cmAO Peak GR.14mmHg LVOT Peak Wsscgzdc615.0cm/sLVOT VTI15.30cmAO Mean GR.9mmHg Mitral Valve MV E Djyxaiqh797.0cm/sMV E Peak Gr.11mmHgMV A Zjqsdavo078.0cm/s MV E Mean Gr.5mmHgMV [id number]/A ratio0.6 MVA (PHT)1.38cm2 TDI E/Lateral E'0.0E/Medial E'0.0 Pulmonary Valve PV Peak Dduxfbem42.0cm/sPV Peak Grad.2mmHg Tricuspid Valve TR Peak Xecklhdr137eb/sRAP [id number] Peak Gr.33mmHg [id number] LEFT VENTRICLE The left ventricle cavity is small. There is moderate concentric left ventricular hypertrophy. The left ventricular function is normal. The left ventricular ejection fraction is within the normal range. There is normal LV segmental wall motion. RIGHT VENTRICLE The right ventricle is normal size. The right ventricular systolic function is normal. ATRIA The left atrium is severely dilated. The right atrium is moderately dilated. The interatrial septum is intact with no evidence for an atrial septal defect. AORTIC VALVE The aortic valve is mildly sclerotic. There is mild aortic regurgitation. There is no aortic valvular stenosis. MITRAL VALVE The mitral valve is calcified and displays decreased opening. Mitral regurgitation is mild. There is moderate mitral valve stenosis. TRICUSPID VALVE The tricuspid valve is normal in structure. There is moderate tricuspid regurgitation. PULMONIC VALVE The pulmonary valve is normal in structure. GREAT VESSELS The aortic root is normal in size. The IVC is normal in size and collapses >50% with inspiration. PERICARDIAL EFFUSION There is no pleural effusion. There is no pericardial effusion. <Conclusion> Biatrial enlargement. Moderate concentric LVH. Small LV cavity size with normal LV systolic function. Calcified mitral apparatus causing moderate functional stenosis. Mild mitral regurgitation. Mild aortic insufficiency. Moderate tricuspid regurgitation. No obvious course of cardiac embolus noted. If clinical suspicion is high, consider TERRY imaging.
[2019-02-22 21:07] LABS: BASO # 0.02 K/mm3 (0.0-2.0); BASO % 0.2 % (0.0-3.0); EOS # 0.1 (0.0-0.7); EOS % 0.5 % (1.5-5.0); HEMOGLOBIN 9.2 g/dL (12.0-16.0); LYMPH # 3.2 (1.2-3.4); LYMPH % 28.9 % (22.0-35.0); MEAN CELL VOLUME 86.5 fl (80.0-105.0); MEAN CORPUSCULAR HEMOGLOBIN 27.1 pg (25.0-35.0); MEAN CORPUSCULAR HGB CONC 31.3 g/dl (31.0-37.0); MONO # 0.6 (0.1-0.6); MONO % 5.8 % (1.0-6.0); RBC 3.4 10^6/uL (3.5-6.1); RED CELL DISTRIBUTION WIDTH 14.9 % (11.5-14.5); WHITE BLOOD COUNT 10.9 10^3/uL (4.5-11.0)
[2019-02-22 21:17] LABS: ALB/GLOB RATIO 1.2 (1.1-1.8); ALBUMIN 3.3 g/dL (3.0-4.8); ALT/SGPT 20 U/L (7-56); AST/SGOT 27 U/L (14-36); BLOOD UREA NITROGEN 22 mg/dL (7-21); CALCIUM 8.3 mg/dL (8.4-10.5); GFR NON-AFRICAN AMERICAN 53
--- NOTE | 2019-02-23 02:16 | CON ---
DATE: 02/22/2019 HISTORY OF PRESENT ILLNESS: This is an 79-year-old black female with past medical history of hypertension, mild dementia, presented with left facial droop, slurred speech, left arm weakness. The patient was given tPA and MRI of the head was done showed right frontal posterior acute infarct. PAST MEDICAL HISTORY: Hypertension, murmur, and dementia. ALLERGIES: NO KNOWN DRUG ALLERGIES. PHYSICAL EXAMINATION HEENT: Normocephalic, atraumatic. Cranial nerve left side droop. Also slurred speech and left arm weakness. NEUROLOGIC: Deep tendon reflex is 1+. Plantars downgoing. Sensory appears intact. Cerebellar gait deferred. IMPRESSION: Right hemispheric infarct and MRI of the brain showed right frontal posterior acute infarct. PLAN: Continue present management. The patient was given tPA and we will follow up. Victor Manuel Ortiz MD
[2019-02-23 06:23] LABS: BASO # 0.02 K/mm3 (0.0-2.0); BASO % 0.2 % (0.0-3.0); EOS # 0.1 (0.0-0.7); EOS % 0.7 % (1.5-5.0); HEMOGLOBIN 8.1 g/dL (12.0-16.0); LYMPH # 3.1 (1.2-3.4); LYMPH % 37.2 % (22.0-35.0); MEAN CELL VOLUME 86.6 fl (80.0-105.0); MEAN CORPUSCULAR HEMOGLOBIN 27.2 pg (25.0-35.0); MEAN CORPUSCULAR HGB CONC 31.4 g/dl (31.0-37.0); MEAN PLATELET VOLUME 9.4 fl (7.0-11.0); MONO # 0.8 (0.1-0.6); MONO % 9.1 % (1.0-6.0); RBC 2.98 10^6/uL (3.5-6.1); WHITE BLOOD COUNT 8.4 10^3/uL (4.5-11.0)
[2019-02-23 06:50] LABS: ALB/GLOB RATIO 1.1 (1.1-1.8); ALBUMIN 2.9 g/dL (3.0-4.8); ALT/SGPT 17 U/L (7-56); AST/SGOT 23 U/L (14-36); BLOOD UREA NITROGEN 25 mg/dL (7-21); CALCIUM 8.2 mg/dL (8.4-10.5); GFR NON-AFRICAN AMERICAN > 60
--- NOTE | 2019-02-23 07:23 | CP.CCUPN ---
CCU Subjective - Physician Review Subjective (Free Text): Abhishek Rodriguez, PGY-1 Critical Care Progress Note Patient seen and evaluated at bedside. No acute events reported overnight. No bloody bowel movements, hematochezia, melena, hematemesis overnight. Patient reports feeling cool but denies chest pain, palpitations, shortness of breath, headaches, weakness and headaches. CCU Objective - Vital Signs / Intake & Output Intake and Output (Last 8hrs): Intake & Output 02/22/19 02/23/19 02/23/19 22:59 06:59 14:59 Intake Total 240 Output Total 650 Balance -410 Intake: Oral 240 Output: Urine 650 Urethral (Johnson) 650 Other: # Bowel Movements 1 - Physical Exam Head: Positive for: Atraumatic, Normocephalic Pupils: Positive for: PERRL Extroacular Muscles: Positive for: Gaze Palsy (deviated rightward gaze) Conjunctiva: Positive for: Normal Mouth: Positive for: Moist Mucous Membranes Neck: Positive for: Normal Range of Motion Respiratory/Chest: Positive for: Clear to Auscultation, Good Air Exchange. Negative for: Respiratory Distress, Accessory Muscle Use Cardiovascular: Positive for: Regular Rate and Rhythm, Normal S1, S2. Negative for: Murmurs Abdomen: Negative for: Tenderness, Distention, Peritoneal Signs Back: Positive for: Normal Inspection Upper Extremity: Positive for: Other (Left Upper extremity droop. Left arm 2/5 motor strength. Right arm 4/5 motor strength. ). Negative for: Cyanosis, Edema Lower Extremity: Positive for: Other (Left lower extremity 2/5 motor strength, 3/5 right lower extremity strength). Negative for: Edema Neurological: Positive for: Normal Sensory Function, Other (Dysarthria noted) Skin: Positive for: Warm, Dry, Normal Color. Negative for: Rashes Psychiatric: Positive for: Alert - Medications Active Medications: Active Medications Generic Name Dose Route Start Last Admin Trade Name Freq PRN Reason Stop Dose Admin Aspirin 81 mg 02/22/19 10:00 02/22/19 09:11 Ecotrin PO Not Given DAILY [facility] Atorvastatin Calcium 40 mg 02/22/19 17:00 02/22/19 17:29 Lipitor PO 40 mg DIN MARIANN Administration Donepezil HCl 10 mg 02/22/19 10:02/22/19 09:11 Aricept PO Not Given DAILY MARIANN Guaifenesin/Dextromethorphan 5 ml 02/22/19 15:48 02/22/19 17:29 Robitussin Dm PO 5 ml Q4H PRN Administration Cough Metoprolol Succinate 50 mg 02/22/19 18:00 02/22/19 17:29 Toprol Xl PO 50 mg QPM MARIANN Administration Pantoprazole Sodium 40 mg 02/22/19 10:30 02/22/19 21:57 Protonix Inj IVP 40 mg Q12 MARIANN Administration Tolterodine Tartrate 4 mg 02/22/19 10:00 02/22/19 09:11 Detrol La PO Not Given DAILY MARIANN - Patient Studies Lab Studies: Lab Studies 02/23/19 02/23/19 02/22/19 Range/Units 05:30 05:30 21:00 WBC 8.4 D (4.5-11.0) 10^3/uL RBC 2.98 L (3.5-6.1) 10^6/uL Hgb 8.1 L (12.0-16.0) g/dL Hct 25.8 L (36.0-48.0) % MCV 86.6 (80.0-105.0) fl MCH 27.2 (25.0-35.0) pg MCHC 31.4 (31.0-37.0) g/dl RDW 15.0 H (11.5-14.5) % Plt Count 286 (120.0-450.0) 10^3/uL MPV 9.4 (7.0-11.0) fl Neut % (Auto) 52.8 (50.0-68.0) % Lymph % (Auto) 37.2 H (22.0-35.0) % [place] % (Auto) 9.1 H (1.0-6.0) % Eos % (Auto) 0.7 L (1.5-5.0) % Baso % (Auto) 0.2 (0.0-3.0) % Lymph # (Auto) 3.1 (1.2-3.4) [place] # (Auto) 0.8 H (0.1-0.6) Eos # (Auto) 0.1 (0.0-0.7) Baso # (Auto) 0.02 (0.0-2.0) K/mm3 Absolute Neuts (auto) 4.42 (1.4-6.5) Sodium 144 142 (132-148) mmol/L Potassium 3.8 3.5 L (3.6-5.0) mmol/L Chloride 107 106 (98-107) mmol/L Carbon Dioxide 30 32 (21-33) mmol/L Anion Gap 10 8 L (10-20) BUN 25 H 22 H (7-21) mg/dL Creatinine 0.9 1.0 (0.7-1.2) mg/dl Est GFR ( Amer) > 60 > 60 Est GFR (Non-Af Amer) > 60 53 Random Glucose 95 102 (70-110) mg/dL Calcium 8.2 L 8.3 L (8.4-10.5) mg/dL Phosphorus 3.2 (2.5-4.5) mg/dL Magnesium 1.7 (1.7-2.2) mg/dL Total Bilirubin 0.3 0.2 (0.2-1.3) mg/dL AST 23 27 (14-36) U/L ALT 17 20 (7-56) U/L Alkaline Phosphatase 49 54 (38-126) U/L Total Protein 5.7 L 6.1 (5.8-8.3) g/dL Albumin 2.9 L 3.3 (3.0-4.8) g/dL Globulin 2.7 2.8 gm/dL Albumin/Globulin Ratio 1.1 1.2 (1.1-1.8) 02/22/19 Range/Units 21:00 WBC 10.9 D (4.5-11.0) 10^3/uL RBC 3.40 L (3.5-6.1) 10^6/uL Hgb 9.2 L D (12.0-16.0) g/dL Hct 29.4 L (36.0-48.0) % MCV 86.5 (80.0-105.0) fl MCH 27.1 (25.0-35.0) pg MCHC 31.3 (31.0-37.0) g/dl RDW 14.9 H (11.5-14.5) % Plt Count 293 (120.0-450.0) 10^3/uL MPV 9.0 (7.0-11.0) fl Neut % (Auto) 64.6 (50.0-68.0) % Lymph % (Auto) 28.9 (22.0-35.0) % [place] % (Auto) 5.8 (1.0-6.0) % Eos % (Auto) 0.5 L (1.5-5.0) % Baso % (Auto) 0.2 (0.0-3.0) % Lymph # (Auto) 3.2 (1.2-3.4) [place] # (Auto) 0.6 (0.1-0.6) Eos # (Auto) 0.1 (0.0-0.7) Baso # (Auto) 0.02 (0.0-2.0) K/mm3 Absolute Neuts (auto) 7.04 H (1.4-6.5) Sodium (132-148) mmol/L Potassium (3.6-5.0) mmol/L Chloride (98-107) mmol/L Carbon Dioxide (21-33) mmol/L Anion Gap (10-20) BUN (7-21) mg/dL Creatinine (0.7-1.2) mg/dl Est GFR ( Amer) Est GFR (Non-Af Amer) Random Glucose (70-110) mg/dL Calcium (8.4-10.5) mg/dL Phosphorus (2.5-4.5) mg/dL Magnesium (1.7-2.2) mg/dL Total Bilirubin (0.2-1.3) mg/dL AST (14-36) U/L ALT (7-56) U/L Alkaline Phosphatase (38-126) U/L Total Protein (5.8-8.3) g/dL Albumin (3.0-4.8) g/dL Globulin gm/dL Albumin/Globulin Ratio (1.1-1.8) Laboratory Results - last 24 hr 02/22/19 02/22/19 02/23/19 21:00 21:00 05:30 WBC 10.9 D 8.4 D RBC 3.40 L 2.98 L Hgb 9.2 L D 8.1 L Hct 29.4 L 25.8 L MCV 86.5 86.6 MCH 27.1 27.2 MCHC 31.3 31.4 RDW 14.9 H 15.0 H Plt Count 293 286 MPV 9.0 9.4 Neut % (Auto) 64.6 52.8 Lymph % (Auto) 28.9 37.2 H [place] % (Auto) 5.8 9.1 H Eos % (Auto) 0.5 L 0.7 L Baso % (Auto) 0.2 0.2 Lymph # (Auto) 3.2 3.1 [place] # (Auto) 0.6 0.8 H Eos # (Auto) 0.1 0.1 Baso # (Auto) 0.02 0.02 Absolute Neuts (auto) 7.04 H 4.42 Sodium 142 Potassium 3.5 L Chloride 106 Carbon Dioxide 32 Anion Gap 8 L BUN 22 H Creatinine 1.0 Est GFR ( Amer) > 60 Est GFR (Non-Af Amer) 53 Random Glucose 102 Calcium 8.3 L Phosphorus 3.2 Magnesium 1.7 Total Bilirubin 0.2 AST 27 ALT 20 Alkaline Phosphatase 54 Total Protein 6.1 Albumin 3.3 Globulin 2.8 Albumin/Globulin Ratio 1.2 02/23/19 05:30 WBC RBC Hgb Hct MCV MCH MCHC RDW Plt Count MPV Neut % (Auto) Lymph % (Auto) [place] % (Auto) Eos % (Auto) Baso % (Auto) Lymph # (Auto) [place] # (Auto) Eos # (Auto) Baso # (Auto) Absolute Neuts (auto) Sodium 144 Potassium 3.8 Chloride 107 Carbon Dioxide 30 Anion Gap 10 BUN 25 H Creatinine 0.9 Est GFR ( Amer) > 60 Est GFR (Non-Af Amer) > 60 Random Glucose 95 Calcium 8.2 L Phosphorus Magnesium Total Bilirubin 0.3 AST 23 ALT 17 Alkaline Phosphatase 49 Total Protein 5.7 L Albumin 2.9 L Globulin 2.7 Albumin/Globulin Ratio 1.1 Radiology Impressions: Radiology Impressions Chest X-Ray 02/21/19 18:29 IMPRESSION: Linear atelectasis at the right lung base Head/Neck CTA 02/21/19 18:58 IMPRESSION: No significant carotid or vertebral stenosis CT Angiography of the Brain. HISTORY: LUE and drooling COMPARISON: None available. TECHNIQUE: CT angiography of the intracranial arteries was performed. Coronal and sagittal maximum intensity projection reformated images were generated. Radiation dose: Total exam DLP = 643.63 mGy-cm. This CT exam was performed using one or more of the following dose reduction techniques: Automated exposure control, adjustment of the mA and/or kV according to patient size, and/or use of iterative reconstruction technique. FINDINGS: INTERNAL CEREBRAL ARTERIES: Unremarkable. The skull base, petrous, cavernous and supraclinoid segments are bilaterally widely patent. ANTERIOR CEREBRAL ARTERIES: Unremarkable. A1 and A2 segments are widely patent. Smaller distal branches unremarkable, as visualized. MIDDLE CEREBRAL ARTERIES: Unremarkable. M1 and M2 segments are widely patent. Perisylvian branches grossly symmetric. POSTERIOR CIRCULATION: Basilar Artery: Unremarkable. Distal Vertebral Arteries: Unremarkable. Posterior Cerebral Arteries: Unremarkable. Posterior Inferior Cerebellar Arteries: Unremarkable. ANEURYSM/ VASCULAR MALFORMATIONS: None. OTHER FINDINGS: The report concurs with the preliminary [facility] report IMPRESSION: Unremarkable CT Angiography of the Brain. Brain MRI 02/22/19 13:03 IMPRESSION: There is a small acute cortical infarct in the right posterior frontal lobe. This measures 17 x 17 mm Fingerstick Blood Sugar Results: 109 Review of Systems - Review of Systems Review of Systems: 12 point ROS completed and negative except as described as above. Critical Care Progress Note - Nutrition Nutrition: Nutrition Category Date Time Status Dysphagia/Modified Consistency Diet [DIET] Diets 02/22/19 Dinner Ordered Assessment/Plan - Assessment and Plan (Free Text) Assessment: 79 year old, right handed female with a past medical history of hypertension, mild dementia, and heart murmur who presented with left facial droop, slurred speech, and left arm weakness, s/p TPa administration. Neuro: -02/21/19 CT head can't r/o acute ischemic changes -02/22/19 CTA head/neck: unremarkable, no significant carotid or vertebral stenosis -AAOx3, moving extremities past midline. -Monitor neuro status. -Neuro consult Dr. Adali Ortiz - recs appreciated -MRI brain 02/22/19 shows small acute cortical infarct in R posterior frontal lobe Cardio: -S/P TPA -RRR, normotensive, no signs of HD compromise -Maintain sBP <180 -02/22/19 Echo shows 63%, mild concentric LVH, calcified mitral stenosis, no obvious source of embolus. -Maintain MAP >65. -Monitor for S/S, HD compromise. Pulm: -No signs of respiratory distress. CTA B/L -Maintain O2 saturation>92%. -O2 NC PRN -02/21/19 CXR: linear atelectasis at R lung base -Elevate bed to 30 degrees GI: -Passed swallow eval - trial diet of bland puree with nectar thick liquids, spooned. -Protonix IV BID /Nephro: -BUN/Cr stable -UA benign -Good urine output -Continue monitoring. -Maintain euvolemia. Endocrinology: -Random glucose: 109 -Maintain euglycemia Heme/Onc: -H/H drop, possibly 2/2 IVF maintenance -ASA on hold after bloody BM yesterday -No signs of HD compromise. -Continue monitoring H/H ID: -Afebrile, no leukocytosis -Monitor for signs and symptoms of infection. DVT prophylaxis: No chemoprophylaxis in setting of tPa
[2019-02-23] MEDS: Tolterodine 4 mg ER Cap PO SCH (09:21)
[2019-02-23] MEDS: guaiFENesin DM 100 mg-10 mg/5 ml UD PO PRN (09:27)
--- NOTE | 2019-02-23 09:45 | CP.PCM.PCO ---
Additional Comments - Additional Comments Additional Comments: Pt seen and examined at bedside. In no acute distress. Denies chest pain, shortness of breath, dizziness or headache. L side weakness noted. Pending physical therapy eval. D/W Dr. Loredo, if remains stable possible discharge to rehab in AM. Will continue to follow.
--- NOTE | 2019-02-23 11:39 | CP.PCM.CON ---
<Marlon Petersen - Last Filed: 02/23/19 19:09> History of Present Illness - History of Present Illness History of Present Illness: Marlon Petersen Internal Medicine Resident- Consult Note on Behalf of Dr. Suarez Subjective: CC: facial droop, slurred speech, weakness HPI: Patient is a 79 year old female with a past medical history of hypertension and dementia who was admitted for evaluation and treatment of left facial droop, slurred speech, and left arm weakness. She was diagnosed and treated for a CVA via administration of tPA. GI team was consulted for management/recommendations on anemia. Patient denies abdominal pain, nausea, vomiting, diarrhea, constipation, bright red blood per rectum, black stools. Admits to having appetite and tolerating diet. Further denies fever, chills, chest pain, SOB. 12 point ROS negative except as indicated in HPI Past medical history: hypertension, mild dementia Past surgical history: denies Social history: denies ETOH use, tobacco use, and illicit drug use Family history: Noncontributory Allergies: Denies Medications: as per MAR PMD: Dr. Mason Physical Examination: - Constitutional Appears: NAD - Head Exam Head Exam: NORMOCEPHALIC - Eye Exam Eye Exam: EOMI. absent: Scleral icterus - ENT Exam ENT Exam: Mucous Membranes Dry - Neck Exam Neck exam: Positive for: Normal Inspection - Respiratory Exam Respiratory Exam: Decreased Breath Sounds. absent: Rales, Rhonchi, Wheezes - Cardiovascular Exam Cardiovascular Exam: +S1, +S2 - GI/Abdominal Exam GI & Abdominal Exam: Normal Bowel Sounds, Soft. absent: Distended, Tenderness - Extremities Exam Additional comments: - Neurological Exam Neurological exam: Alert Additional comments: awake, alert, responds to verbal stimuli, answers questions appropriately, follows commands - Skin Skin Exam: Warm Assessment and Plan: Patient is a 79 year old female with a past medical history of hypertension and dementia who was admitted for evaluation and treatment of left facial droop, slurred speech, and left arm weakness. Potential GI Bleed Normocytic Anemia- downtrending Acute CVA with left sided weakness - continue modified consistency diet - CBC in AM - hold aspirin - continue protonix 40mg IV q12 - transfuse pRBCs if patient's Hgb is less than 7 - 02/16/2019 recent endoscopy showed a 5 cm polyp in the cecum which was removed with a hot snare, internal hemorrhoids, and redundant colon Patient seen, case discussed with, and plan approved by attending physician, Dr. Suarez. Past Patient History - Infectious Disease Hx of Infectious Diseases: None - Past Social History Smoking Status: Never Smoked - CARDIAC Hx Cardiac Disorders: Yes Hx Hypertension: Yes - PULMONARY Hx Respiratory Disorders: No - NEUROLOGICAL Hx Paralysis: No - HEENT Hx Cataracts: Yes - RENAL Hx Chronic Kidney Disease: No - ENDOCRINE/METABOLIC Hx Endocrine Disorders: No - HEMATOLOGICAL/ONCOLOGICAL Hx Blood Transfusions: No - INTEGUMENTARY Hx Dermatological Problems: No - MUSCULOSKELETAL/RHEUMATOLOGICAL Hx Musculoskeletal Disorders: No - GASTROINTESTINAL Hx Gastroesophageal Reflux: Yes - GENITOURINARY/GYNECOLOGICAL Hx Genitourinary Disorders: No - PSYCHIATRIC Hx Emotional Abuse: No Hx Physical Abuse: No Hx Substance Use: No - SURGICAL HISTORY Hx Surgeries: Yes - ANESTHESIA Hx Anesthesia: Yes Hx Anesthesia Reactions: No Hx Malignant Hyperthermia: No Meds Allergies/Adverse Reactions: Allergies Allergy/AdvReac Type Severity Reaction Status Date / Time No Known Allergies Allergy Verified 08/16/15 20:58 - Medications Medications: Current Medications Aspirin (Ecotrin) 81 mg PO DAILY COUNT INCLUDES THE [facility] Last Admin: 02/22/19 09:11 Dose: Not Given Atorvastatin Calcium (Lipitor) 40 mg PO DIN COUNT INCLUDES THE [facility] Last Admin: 02/22/19 17:29 Dose: 40 mg Donepezil HCl (Aricept) 10 mg PO DAILY COUNT INCLUDES THE [facility] Last Admin: 02/23/19 09:27 Dose: 10 mg Guaifenesin/Dextromethorphan (Robitussin Dm) 5 ml PO Q4H PRN PRN Reason: Cough Last Admin: 02/23/19 09:27 Dose: 5 ml Metoprolol Succinate (Toprol Xl) 50 mg PO QPM COUNT INCLUDES THE [facility] Last Admin: 02/22/19 17:29 Dose: 50 mg Pantoprazole Sodium (Protonix Inj) 40 mg IVP Q12 COUNT INCLUDES THE [facility] Last Admin: 02/23/19 09:28 Dose: 40 mg Tolterodine Tartrate (Detrol La) 4 mg PO DAILY COUNT INCLUDES THE [facility] Last Admin: 02/23/19 09:21 Dose: 4 mg Results - Vital Signs Recent Vital Signs: Last Vital Signs Temp 98.8 F 02/23/19 04:00 Pulse 76 02/23/19 05:00 Resp 20 02/23/19 05:00 BP 101/63 02/23/19 05:00 Pulse Ox 94 L 02/23/19 05:00 - Labs Result Diagrams: 02/23/19 05:30 02/23/19 05:30 Labs: Laboratory Results - last 24 hr 02/22/19 02/22/19 02/23/19 21:00 21:00 05:30 WBC 10.9 D 8.4 D RBC 3.40 L 2.98 L Hgb 9.2 L D 8.1 L Hct 29.4 L 25.8 L MCV 86.5 86.6 MCH 27.1 27.2 MCHC 31.3 31.4 RDW 14.9 H 15.0 H Plt Count 293 286 MPV 9.0 9.4 Neut % (Auto) 64.6 52.8 Lymph % (Auto) 28.9 37.2 H [place] % (Auto) 5.8 9.1 H Eos % (Auto) 0.5 L 0.7 L Baso % (Auto) 0.2 0.2 Lymph # (Auto) 3.2 3.1 [place] # (Auto) 0.6 0.8 H Eos # (Auto) 0.1 0.1 Baso # (Auto) 0.02 0.02 Absolute Neuts (auto) 7.04 H 4.42 Sodium 142 Potassium 3.5 L Chloride 106 Carbon Dioxide 32 Anion Gap 8 L BUN 22 H Creatinine 1.0 Est GFR ( Amer) > 60 Est GFR (Non-Af Amer) 53 Random Glucose 102 Calcium 8.3 L Phosphorus 3.2 Magnesium 1.7 Total Bilirubin 0.2 AST 27 ALT 20 Alkaline Phosphatase 54 Total Protein 6.1 Albumin 3.3 Globulin 2.8 Albumin/Globulin Ratio 1.2 02/23/19 05:30 WBC RBC Hgb Hct MCV MCH MCHC RDW Plt Count MPV Neut % (Auto) Lymph % (Auto) [place] % (Auto) Eos % (Auto) Baso % (Auto) Lymph # (Auto) [place] # (Auto) Eos # (Auto) Baso # (Auto) Absolute Neuts (auto) Sodium 144 Potassium 3.8 Chloride 107 Carbon Dioxide 30 Anion Gap 10 BUN 25 H Creatinine 0.9 Est GFR ( Amer) > 60 Est GFR (Non-Af Amer) > 60 Random Glucose 95 Calcium 8.2 L Phosphorus Magnesium Total Bilirubin 0.3 AST 23 ALT 17 Alkaline Phosphatase 49 Total Protein 5.7 L Albumin 2.9 L Globulin 2.7 Albumin/Globulin Ratio 1.1 <Erick,Kovil V - Last Filed: 02/23/19 22:58> Meds - Medications Medications: Current Medications Aspirin (Ecotrin) 81 mg PO DAILY COUNT INCLUDES THE [facility] Last Admin: 02/22/19 09:11 Dose: Not Given Atorvastatin Calcium (Lipitor) 40 mg PO DIN COUNT INCLUDES THE [facility] Last Admin: 02/23/19 18:22 Dose: 40 mg Donepezil HCl (Aricept) 10 mg PO DAILY COUNT INCLUDES THE [facility] Last Admin: 02/23/19 09:27 Dose: 10 mg Guaifenesin/Dextromethorphan (Robitussin Dm) 5 ml PO Q4H PRN PRN Reason: Cough Last Admin: 02/23/19 09:27 Dose: 5 ml Metoprolol Succinate (Toprol Xl) 50 mg PO QPM COUNT INCLUDES THE [facility] Last Admin: 02/23/19 18:22 Dose: 50 mg Pantoprazole Sodium (Protonix Inj) 40 mg IVP Q12 COUNT INCLUDES THE [facility] Last Admin: 02/23/19 22:45 Dose: 40 mg Tolterodine Tartrate (Detrol La) 4 mg PO DAILY COUNT INCLUDES THE [facility] Last Admin: 02/23/19 09:21 Dose: 4 mg Results - Vital Signs Recent Vital Signs: Last Vital Signs Temp 98 F 02/23/19 17:24 Pulse 85 02/23/19 18:22 Resp 18 02/23/19 17:24 BP 119/81 02/23/19 18:22 Pulse Ox 94 L 02/23/19 05:00 - Labs Result Diagrams: 02/23/19 05:30 02/23/19 05:30 Labs: Laboratory Results - last 24 hr 02/23/19 02/23/19 02/23/19 05:30 05:30 11:30 WBC 8.4 D RBC 2.98 L Hgb 8.1 L Hct 25.8 L MCV 86.6 MCH 27.2 MCHC 31.4 RDW 15.0 H Plt Count 286 MPV 9.4 Neut % (Auto) 52.8 Lymph % (Auto) 37.2 H [place] % (Auto) 9.1 H Eos % (Auto) 0.7 L Baso % (Auto) 0.2 Lymph # (Auto) 3.1 [place] # (Auto) 0.8 H Eos # (Auto) 0.1 Baso # (Auto) 0.02 Absolute Neuts (auto) 4.42 Sodium 144 Potassium 3.8 Chloride 107 Carbon Dioxide 30 Anion Gap 10 BUN 25 H Creatinine 0.9 Est GFR ( Amer) > 60 Est GFR (Non-Af Amer) > 60 Random Glucose 95 Calcium 8.2 L Iron 39 L TIBC 242 L % Saturation 16 L Ferritin Total Bilirubin 0.3 AST 23 ALT 17 Alkaline Phosphatase 49 Total Protein 5.7 L Albumin 2.9 L Globulin 2.7 Albumin/Globulin Ratio 1.1 02/23/19 11:30 WBC RBC Hgb Hct MCV MCH MCHC RDW Plt Count MPV Neut % (Auto) Lymph % (Auto) [place] % (Auto) Eos % (Auto) Baso % (Auto) Lymph # (Auto) [place] # (Auto) Eos # (Auto) Baso # (Auto) Absolute Neuts (auto) Sodium Potassium Chloride Carbon Dioxide Anion Gap BUN Creatinine Est GFR ( Amer) Est GFR (Non-Af Amer) Random Glucose Calcium Iron TIBC % Saturation Ferritin 124.0 Total Bilirubin AST ALT Alkaline Phosphatase Total Protein Albumin Globulin Albumin/Globulin Ratio Attending/Attestation - Attestation I have personally seen and examined this patient.: Yes I have fully participated in the care of the patient.: Yes I have reviewed all pertinent clinical information: Yes Notes (Text): This patient was seen and evaluated along with the medical assistant instructor. This is an addendum to the GI consultation report dictated by the resident. Status post TPA for acute CVA. Patient was found to have a significant drop in blood count. Dropped from 12-8. However no obvious active bleeding per rectum or melena noticed. Patient did have a colonoscopy a week ago was found to have a small polyp removed from cecum. CT scan was requested to rule out any retroperitoneal and abdominal bleeding.. CT was reviewed no obvious bleeding source identified Continue close follow-up of the hemoglobin hematocrit and transfuse as needed Continue empiric PPI therapy. 02/23/19 22:54
[2019-02-23 12:09] LABS: IRON 39 ug/dL (45-180)
--- NOTE | 2019-02-23 12:17 | PN ---
DATE: 02/23/2019 SUBJECTIVE: The patient has no complaints of any chest pain. No shortness of breath. No headaches. PHYSICAL EXAMINATION: VITAL SIGNS: Temperature 98.8, pulse 76, blood pressure 101/63, respirations 20. GENERAL: The patient is lying in bed, flat, comfortable. HEENT: No oral lesion. Anicteric sclerae. Moist mucosa. NECK: No JVD, adenopathy, or thyromegaly. CARDIOVASCULAR: S1 and S2, regular. No murmurs, rubs, or gallops. LUNGS: Clear to auscultation bilaterally. No wheeze, rales, or rhonchi. ABDOMEN: Bowel sounds are positive, soft, nontender and nondistended. EXTREMITIES: The left arm has 4/5 power. LABORATORY DATA: Hemoglobin is 8.1, creatinine 0.9. ASSESSMENT: 1. Acute cerebrovascular accident of right frontal lobe. 2. Dyslipidemia. 3. Urinary incontinence. 4. Dementia, Alzheimer's type. PLAN: The patient is currently comfortable. She is status post tPA. Her left arm is better, but she will need rehab. The patient had echo that showed moderate LVH. There is moderate tricuspid regurgitation. She is getting physical therapy. I appreciate input from Dr. Ortiz. The patient is on Detrol for the incontinence. She is on Lipitor for dyslipidemia. The patient is on aspirin for the CVA, but it has been placed on hold. The patient has a hemoglobin that has decreased, that is the cause why the aspirin has been placed on hold. We will continue to follow CBC. She does have an ecchymotic area in the left leg. Oziel Loredo MD
[2019-02-23 12:27] LABS: % IRON SATURATION 16 % (20-55); TOTAL IRON BINDING CAPACITY 242 ug/dL (265-497)
--- NOTE | 2019-02-23 14:52 | CT ---
PROCEDURE: CT Abdomen and Pelvis without Oral or IV contrast. HISTORY: anemia s/p tPA, R/O intraabd bleeding COMPARISON: None available. TECHNIQUE: Contiguous axial images of the abdomen and pelvis. No oral or IV contrast administered. Coronal and Sagittal reformats generated and reviewed. Radiation dose: Total exam DLP = 611.88 mGy-cm. This CT exam was performed using one or more of the following dose reduction techniques: Automated exposure control, adjustment of the mA and/or kV according to patient size, and/or use of iterative reconstruction technique. FINDINGS: Examination limited by patient motion. There is limited evaluation of the solid organs without the administration of IV contrast. LOWER THORAX: Mild basilar atelectasis. No visible pleural effusion or pneumothorax. LIVER: 8 mm too small to characterize left hepatic lobe hypodensity. Within the right hepatic lobe there is a 12 mm indeterminate hepatic hypodensity. GALLBLADDER AND BILE DUCTS: High-density material within the gallbladder presumably related to vicarious excretion of contrast. PANCREAS: Atrophy. SPLEEN: Unremarkable. ADRENALS: Bilateral adrenal gland hypertrophy. KIDNEYS AND URETERS: No hydronephrosis or obstructing renal calculus. Indeterminate 6 mm right anterior upper/midpole hyperdensity. BLADDER: The urinary bladder appears unremarkable. REPRODUCTIVE: Uterus is present. Coarse uterine calcifications predominantly involving the left fundus presumably due to degenerating fibroid. APPENDIX: The appendix is not identified. No secondary signs of acute appendicitis. BOWEL: The stomach is nondistended. Lack of oral contrast limits evaluation for bowel pathology. The bowel loops appear within normal limits of caliber without evidence of intestinal obstruction. PERITONEUM: No significant free fluid. No definite free air. LYMPH NODES: No bulky lymphadenopathy identified. VASCULATURE: Atherosclerotic calcifications of the aorta and branches. Of no aortic aneurysm. BONES: Osseous demineralization. Multilevel degenerative changes. Facet hypertrophy. Intervertebral disc space narrowing most prominent L5-S1. Bridging large anterior osteophyte at L5-S1. OTHER FINDINGS: None. IMPRESSION: Examination limited by motion. No evidence of intra-abdominal/pelvic hemorrhage. Basilar atelectasis. Too small to characterize left hepatic lobe hypodensity. 12 mm indeterminate right hepatic lobe hypodensity. Suggest further evaluation with ultrasound and or dedicated cross-sectional imaging. High-density material within the gallbladder presumably related to vicarious excretion of contrast. Pancreatic atrophy. Bilateral adrenal gland hypertrophy. Indeterminate 6 mm right anterior upper/midpole renal hyperdense lesion; recommend further evaluation with ultrasound. Additional incidental findings as above.
[2019-02-23] MEDS: Metoprolol Succinate 50 mg XL Tab PO SCH (18:22)
--- NOTE | 2019-02-24 04:07 | CP.PCM.PN ---
Subjective - Date & Time of Evaluation Date of Evaluation: 02/24/19 Time of Evaluation: 04:06 - Subjective Subjective: TBD. oh co-sign Objective - Vital Signs/Intake and Output Vital Signs (last 24 hours): Temp Pulse Resp BP Pulse Ox 98.4 F 81 18 114/75 96 02/24/19 00:01 02/24/19 02:00 02/24/19 00:01 02/24/19 00:01 02/24/19 00:01 Intake and Output: 02/23/19 02/24/19 18:59 06:59 Intake Total 360 Balance 360 - Medications Medications: Current Medications Aspirin (Ecotrin) 81 mg PO DAILY [facility] Last Admin: 02/22/19 09:11 Dose: Not Given Atorvastatin Calcium (Lipitor) 40 mg PO DIN [facility] Last Admin: 02/23/19 18:22 Dose: 40 mg Donepezil HCl (Aricept) 10 mg PO DAILY [facility] Last Admin: 02/23/19 09:27 Dose: 10 mg Guaifenesin/Dextromethorphan (Robitussin Dm) 5 ml PO Q4H PRN PRN Reason: Cough Last Admin: 02/23/19 09:27 Dose: 5 ml Metoprolol Succinate (Toprol Xl) 50 mg PO QPM [facility] Last Admin: 02/23/19 18:22 Dose: 50 mg Pantoprazole Sodium (Protonix Inj) 40 mg IVP Q12 [facility] Last Admin: 02/23/19 22:45 Dose: 40 mg Tolterodine Tartrate (Detrol La) 4 mg PO DAILY [facility] Last Admin: 02/23/19 09:21 Dose: 4 mg - Labs Labs: 02/23/19 05:30 02/23/19 05:30 PT 13.8 SECONDS (9.4-12.5) H 02/21/19 18:43 INR 1.24 02/21/19 18:43 APTT 38.5 Seconds (26.9-38.3) H 02/21/19 18:43
[2019-02-24 07:23] LABS: ALB/GLOB RATIO 1.1 (1.1-1.8); ALT/SGPT 18 U/L (7-56); AST/SGOT 25 U/L (14-36); BLOOD UREA NITROGEN 21 mg/dL (7-21); CALCIUM 8.4 mg/dL (8.4-10.5); GFR NON-AFRICAN AMERICAN > 60
[2019-02-24 07:49] LABS: BASO # 0.02 K/mm3 (0.0-2.0); BASO % 0.3 % (0.0-3.0); EOS # 0.1 (0.0-0.7); EOS % 1.2 % (1.5-5.0); HEMOGLOBIN 8.2 g/dL (12.0-16.0); LYMPH # 2.9 (1.2-3.4); LYMPH % 39.7 % (22.0-35.0); MEAN CELL VOLUME 86.4 fl (80.0-105.0); MEAN CORPUSCULAR HEMOGLOBIN 27.8 pg (25.0-35.0); MEAN CORPUSCULAR HGB CONC 32.2 g/dl (31.0-37.0); MEAN PLATELET VOLUME 9.6 fl (7.0-11.0); MONO # 0.5 (0.1-0.6); MONO % 7.3 % (1.0-6.0); RBC 2.95 10^6/uL (3.5-6.1); WHITE BLOOD COUNT 7.4 10^3/uL (4.5-11.0)
[2019-02-24] MEDS: Tolterodine 4 mg ER Cap PO SCH (10:36)
--- NOTE | 2019-02-24 13:57 | PN ---
DATE: 02/24/2019 SUBJECTIVE: The patient has no complaint of any chest pain. No shortness of breath or headaches. PHYSICAL EXAMINATION: VITAL SIGNS: Temperature 98.2, pulse of 86, blood pressure 127/79, respirations of 20. GENERAL: The patient is lying in bed, flat, comfortable. HEENT: No oral lesion. Anicteric sclerae. Moist mucosa. NECK: No JVD, adenopathy, or thyromegaly. CARDIOVASCULAR: S1 and S2, regular. No murmurs, rubs, or gallops. LUNGS: Clear to auscultation bilaterally. No wheeze, rales, or rhonchi. ABDOMEN: Bowel sounds are positive, soft, nontender and nondistended. EXTREMITIES: no cyanosis, clubbing or edema. LABS: White count of 7.4, hemoglobin of 8.2, creatinine 0.8. CT of the abdomen and pelvis done shows [id number]-characterize left hepatic lobe hypodensity. This high-density material within gallbladder is most likely from contrast, pancreatic atrophy, bilateral adrenal gland hypertrophy. ASSESSMENT: 1. Acute cerebrovascular accident of the right frontal lobe. 2. Dyslipidemia. 3. Urinary incontinence. 4. Dementia, Alzheimer's type. PLAN: The patient is currently comfortable, is currently getting physical therapy. The patient will need to go to subacute rehab. I did speak to the patient's yesterday to give him an update on the patient's diagnosis and plan of care. The patient had been on aspirin but it is on hold because of the hemoglobin that is low. The patient is on Lipitor for dyslipidemia. The patient is on Protonix, is on metoprolol. Oziel Loredo MD
--- NOTE | 2019-02-24 15:32 | PN ---
DATE: 02/24/2019 NEUROLOGY FOLLOWUP REASON FOR FOLLOWUP: Status post left facial droop and slurred speech secondary to an acute right posterior frontal cortical infarct. SUBJECTIVE: The patient is seen and examined at the bedside, still has a mild left facial droop and dysarthria with left-sided weakness. CT angio of the head and neck showed no acute abnormalities. She is on aspirin 81 and Lipitor 40 for stroke prevention. Her hemoglobin is currently 8.2. We need to monitor increase. PAST MEDICAL HISTORY: History of dyslipidemia, UTI, cognitive impairment. FAMILY HISTORY: Noncontributory. ALLERGIES: NO KNOWN DRUG ALLERGIES. REVIEW OF SYSTEMS: 14-point review of systems is as per HPI. MEDICATIONS: Reviewed by nurses' reconciliation sheet. LABORATORY DATA: Sodium is 144, potassium 3.7, chloride 108, carbon dioxide 32, BUN of 12, creatinine 0.8, random glucose of 92. Also has iron deficiency anemia. PHYSICAL EXAMINATION: GENERAL: The patient is sitting up in bed, no acute distress. VITAL SIGNS: Temperature 98, pulse rate of 85, blood pressure 119/81, respiratory rate of 20, oxygen saturation 94% on room air. HEENT: Atraumatic, normocephalic. PERRLA. Extraocular muscles are intact. NECK: Supple. No JVD. No adenopathy noted. LUNGS: Clear to auscultation. No adventitious sounds. HEART: S1 and S2. Normal rate and rhythm. No murmurs, rubs, or gallops. ABDOMEN: Soft, nontender, nondistended. Bowel sounds present. EXTREMITIES: No clubbing, no cyanosis. Peripheral pulses 2+ felt bilaterally. NEUROLOGICAL: The patient is alert and oriented to person and place, month and year. Speech is dysarthric but no aphasia noted. Cranial nerves II through XII intact except for a left facial droop. Motor exam: Has left-sided 4/5 upper and lower extremity weakness. Right side is intact. Toes are upgoing bilaterally. Sensory exam: . Light touch is intact. Vibration is intact bilaterally. DTRs are 2+ right, 1 in both knees and ankles. Coordination, finger-nose is intact on the right side but with difficulty on the left side due to left side upper arm weakness and CVA. Gait is deferred for now. IMPRESSION: An 79-year-old woman with history of cognitive impairment, dyslipidemia, who presented with left facial droop, slurred speech and left-sided weakness, which was secondary to the right cortical posterior lobe infarct secondary to diffuse atherosclerotic disease. At this time I would recommend; 1. Aspirin 81 and Lipitor 40 for stroke prevention. 2. Monitor her hemoglobin and hematocrit and low hemoglobin and she also has underlying iron deficiency anemia and which will benefit on iron replacement therapy. 3. Will need acute rehab for left sided weakness. 4. Continue with gastrointestinal and deep venous thrombosis prophylaxis. Thank you for this followup. Yoni Ortiz MD
--- NOTE | 2019-02-24 16:16 | CP.PCM.PN ---
<Azeem Gonzáles - Last Filed: 02/24/19 16:12> Subjective - Date & Time of Evaluation Date of Evaluation: 02/24/19 Time of Evaluation: 14:00 - Subjective Subjective: PGY4 GI fellow progress note Patient lying in bed with family at bedside. No acute complaints per patient still with facial droop and dysarthric. Five-point review of systems negative other than stated above Objective - Vital Signs/Intake and Output Vital Signs (last 24 hours): Temp Pulse Resp BP Pulse Ox 98 F 85 20 119/81 97 02/24/19 12:00 02/24/19 12:00 02/24/19 12:00 02/24/19 12:00 02/24/19 06:00 Intake and Output: 02/24/19 02/24/19 06:59 18:59 Intake Total 780 Output Total 2 Balance 778 - Medications Medications: Current Medications Acetaminophen (Tylenol 325mg Tab) 650 mg PO Q6H PRN PRN Reason: Pain, moderate (4-7) Aspirin (Ecotrin) 81 mg PO DAILY [facility] Last Admin: 02/22/19 09:11 Dose: Not Given Atorvastatin Calcium (Lipitor) 40 mg PO DIN [facility] Last Admin: 02/23/19 18:22 Dose: 40 mg Donepezil HCl (Aricept) 10 mg PO DAILY [facility] Last Admin: 02/24/19 10:36 Dose: 10 mg Guaifenesin/Dextromethorphan (Robitussin Dm) 5 ml PO Q4H PRN PRN Reason: Cough Last Admin: 02/23/19 09:27 Dose: 5 ml Metoprolol Succinate (Toprol Xl) 50 mg PO QPM [facility] Last Admin: 02/23/19 18:22 Dose: 50 mg Pantoprazole Sodium (Protonix Inj) 40 mg IVP Q12 [facility] Last Admin: 02/24/19 10:36 Dose: 40 mg Tolterodine Tartrate (Detrol La) 4 mg PO DAILY [facility] Last Admin: 02/24/19 10:36 Dose: 4 mg - Labs Labs: 02/24/19 06:30 02/24/19 06:30 PT 13.8 SECONDS (9.4-12.5) H 02/21/19 18:43 INR 1.24 02/21/19 18:43 APTT 38.5 Seconds (26.9-38.3) H 02/21/19 18:43 - Constitutional Appears: No Acute Distress, Chronically Ill - Head Exam Additional comments: facial droop, atraumatic - Eye Exam Eye Exam: Normal appearance. absent: Scleral icterus - ENT Exam ENT Exam: Mucous Membranes Dry. absent: Mucous Membranes Moist - Respiratory Exam Respiratory Exam: NORMAL BREATHING PATTERN. absent: Accessory Muscle Use - GI/Abdominal Exam GI & Abdominal Exam: Soft. absent: Bruit, Distended, Firm, Guarding, Rigid, Ten derness, Mass, Pulsatile Mass Assessment and Plan - Assessment and Plan (Free Text) Assessment: 79 year old female with a past medical history of hypertension and dementia who was admitted for evaluation and treatment of left facial droop, slurred speech, and left arm weakness. ?GI Bleed: Hgb Stable, no signs of overt GI bleeding Normocytic Anemia- downtrending Acute CVA with left sided weakness and dysarthria Right hepatic lobe lesion: 1.[address] scan Plan: - dysphagia diet with supervised feeds Okay to restart aspirin Plan to review previous imaging regarding hepatic lobe lesion - PPI daily - transfuse pRBCs if Hgb is less than 7 - 02/16/2019 recent endoscopy showed a 5 cm polyp in the cecum which was removed with a hot snare, internal hemorrhoids, and redundant colon patient seen and examined with Dr. Suarez; please see attestation for further recommendations/changes <Lia Suarez V - Last Filed: 02/24/19 18:54> Objective - Vital Signs/Intake and Output Vital Signs (last 24 hours): Temp Pulse Resp BP Pulse Ox 98.1 F 91 H 18 132/91 H 95 02/24/19 17:24 02/24/19 18:00 02/24/19 17:24 02/24/19 17:53 02/24/19 17:24 Intake and Output: 02/24/19 02/24/19 06:59 18:59 Intake Total 780 720 Output Total 2 Balance 778 720 - Medications Medications: Current Medications Acetaminophen (Tylenol 325mg Tab) 650 mg PO Q6H PRN PRN Reason: Pain, moderate (4-7) Aspirin (Ecotrin) 81 mg PO DAILY [facility] Last Admin: 02/24/19 17:58 Dose: 81 mg Atorvastatin Calcium (Lipitor) 40 mg PO DIN [facility] Last Admin: 02/24/19 17:54 Dose: 40 mg Donepezil HCl (Aricept) 10 mg PO DAILY [facility] Last Admin: 02/24/19 10:36 Dose: 10 mg Guaifenesin/Dextromethorphan (Robitussin Dm) 5 ml PO Q4H PRN PRN Reason: Cough Last Admin: 02/23/19 09:27 Dose: 5 ml Metoprolol Succinate (Toprol Xl) 50 mg PO QPM [facility] Last Admin: 02/24/19 17:53 Dose: 50 mg Pantoprazole Sodium (Protonix Inj) 40 mg IVP DAILY [facility] Tolterodine Tartrate (Detrol La) 4 mg PO DAILY [facility] Last Admin: 02/24/19 10:36 Dose: 4 mg - Labs Labs: 02/24/19 06:30 02/24/19 06:30 PT 13.8 SECONDS (9.4-12.5) H 02/21/19 18:43 INR 1.24 02/21/19 18:43 APTT 38.5 Seconds (26.9-38.3) H 02/21/19 18:43 Attending/Attestation - Attestation I have personally seen and examined this patient.: Yes I have fully participated in the care of the patient.: Yes I have reviewed all pertinent clinical information, including history, physical exam and plan: Yes Notes (Text): This is an addendum to the GI progress report dictated by the fellow. Patient was seen and evaluated earlier along with the fellow. Patient's family were at bedside. Patient is on pured diet continue that. Hemoglobin stable. CVA status post TPA. Follow-up of the hemoglobin hematocrit Can restart aspirin Continue PPI 02/24/19 18:53
[2019-02-24] MEDS: Metoprolol Succinate 50 mg XL Tab PO SCH (17:53)
[2019-02-25 07:49] LABS: HEMOGLOBIN 8.2 g/dL (12.0-16.0); MEAN CORPUSCULAR HEMOGLOBIN 26.6 pg (25.0-35.0); MEAN CORPUSCULAR HGB CONC 30.9 g/dl (31.0-37.0); MEAN PLATELET VOLUME 9.6 fl (7.0-11.0); RBC 3.08 10^6/uL (3.5-6.1); RED CELL DISTRIBUTION WIDTH 14.9 % (11.5-14.5); WHITE BLOOD COUNT 7.5 10^3/uL (4.5-11.0)
[2019-02-25] MEDS: Tolterodine 4 mg ER Cap PO SCH (10:08)
--- NOTE | 2019-02-25 16:14 | PN ---
DATE: 02/25/2019 SUBJECTIVE: The patient has no complaints of any chest pain. No shortness of breath. No headaches. PHYSICAL EXAMINATION: VITAL SIGNS: Temperature is 98.1, pulse of 83, blood pressure 138/90, and respiration is 18. GENERAL: The patient is lying in bed, flat, comfortable. HEENT: No oral lesion. Anicteric sclerae. Moist mucosa. NECK: No JVD, adenopathy, or thyromegaly. CARDIOVASCULAR: S1 and S2, regular. No murmurs, rubs, or gallops. LUNGS: Clear to auscultation bilaterally. No wheeze, rales, or rhonchi. ABDOMEN: Bowel sounds are positive, soft, nontender and nondistended. EXTREMITIES: No cyanosis, clubbing, or edema. LABORATORY DATA: White count of 7.5, hemoglobin 8.2, and creatinine 0.8. CT of the abdomen and pelvis that was done shows no signs of bleeding. He has been reviewed previously by me. ASSESSMENT: 1. Acute cerebrovascular accident of the right frontal lobe. 2. Dyslipidemia. 3. Urinary incontinence. 4. Dementia, Alzheimer's type. PLAN: The patient is currently comfortable. She is on aspirin daily. She is going to continue with Lipitor for dyslipidemia. She is on Protonix IV. I will change that over to p.o. The patient is on metoprolol daily. She is on Detrol for incontinence. The patient is waiting for discharge to subacute rehab facility. I will discontinue the patient's telemetry. Oziel Loredo MD
[2019-02-25] MEDS: Metoprolol Succinate 50 mg XL Tab PO SCH (17:48)
--- NOTE | 2019-02-25 17:49 | CP.PCM.PN ---
<Azeem Gonzáles - Last Filed: 02/25/19 17:50> Subjective - Date & Time of Evaluation Date of Evaluation: 02/25/19 Time of Evaluation: 14:30 - Subjective Subjective: PGY4 GI fellow progress note Patient lying in bed, daughter at bedside when seen this afternoon. Patient states she is doing well. Tolerating diet, denied any abdominal pain and no signs of GI bleed per patient and nursing. Five-point review of systems negative other than stated above Objective - Vital Signs/Intake and Output Vital Signs (last 24 hours): Temp Pulse Resp BP Pulse Ox 97.9 F 97 H 18 139/95 H 99 02/25/19 12:00 02/25/19 12:00 02/25/19 12:00 02/25/19 12:00 02/25/19 06:00 Intake and Output: 02/25/19 02/25/19 06:59 18:59 Intake Total 0 Balance 0 - Medications Medications: Current Medications Acetaminophen (Tylenol 325mg Tab) 650 mg PO Q6H PRN PRN Reason: Pain, moderate (4-7) Aspirin (Ecotrin) 81 mg PO DAILY [facility] Last Admin: 02/25/19 10:08 Dose: 81 mg Atorvastatin Calcium (Lipitor) 40 mg PO DIN [facility] Last Admin: 02/24/19 17:54 Dose: 40 mg Donepezil HCl (Aricept) 10 mg PO DAILY [facility] Last Admin: 02/25/19 10:08 Dose: 10 mg Guaifenesin/Dextromethorphan (Robitussin Dm) 5 ml PO Q4H PRN PRN Reason: Cough Last Admin: 02/23/19 09:27 Dose: 5 ml Metoprolol Succinate (Toprol Xl) 50 mg PO QPM [facility] Last Admin: 02/24/19 17:53 Dose: 50 mg Pantoprazole Sodium (Protonix Ec Tab) 40 mg PO 0600 [facility] Tolterodine Tartrate (Detrol La) 4 mg PO DAILY [facility] Last Admin: 02/25/19 10:08 Dose: 4 mg - Labs Labs: 02/25/19 07:00 02/24/19 06:30 PT 13.8 SECONDS (9.4-12.5) H 02/21/19 18:43 INR 1.24 02/21/19 18:43 APTT 38.5 Seconds (26.9-38.3) H 02/21/19 18:43 - Constitutional Appears: No Acute Distress, Chronically Ill - Head Exam Head Exam: ATRAUMATIC Additional comments: facial droop - Eye Exam Eye Exam: Normal appearance. absent: Scleral icterus - ENT Exam ENT Exam: Mucous Membranes Moist. absent: Mucous Membranes Dry - Respiratory Exam Respiratory Exam: NORMAL BREATHING PATTERN. absent: Accessory Muscle Use - GI/Abdominal Exam GI & Abdominal Exam: Soft, Tenderness. absent: Bruit, Distended, Firm, Guarding, Rigid, Mass, Pulsatile Mass Assessment and Plan - Assessment and Plan (Free Text) Assessment: 79 year old female with a past medical history of hypertension and dementia who was admitted for evaluation and treatment of left facial droop, slurred speech, and left arm weakness. ?GI Bleed: Hgb Stable, no signs of overt GI bleeding Normocytic Anemia- downtrending Acute CVA with left sided weakness and dysarthria Right hepatic lobe lesion: 1.[address] scan Plan: - Dysphagia diet with supervised feeds Cont aspirin - PPI daily We will consider abdominal ultrasound to evaluate hepatic lesion - transfuse pRBCs if Hgb is less than 7 - 02/16/2019 recent endoscopy showed a 5 cm polyp in the cecum which was removed with a hot snare, internal hemorrhoids, and redundant colon patient seen and examined with Dr. Suarez; please see attestation for further recommendations/changes <Lia Suarez V - Last Filed: 02/26/19 20:49> Objective - Vital Signs/Intake and Output Vital Signs (last 24 hours): Temp Pulse Resp BP Pulse Ox 98.3 F 85 20 131/90 100 02/26/19 00:01 02/26/19 00:01 02/26/19 00:01 02/26/19 00:01 02/26/19 00:01 Intake and Output: 02/25/19 02/26/19 18:59 06:59 Intake Total 1020 Balance 1020 - Medications Medications: Current Medications Acetaminophen (Tylenol 325mg Tab) 650 mg PO Q6H PRN PRN Reason: Pain, moderate (4-7) Aspirin (Ecotrin) 81 mg PO DAILY [facility] Last Admin: 02/25/19 10:08 Dose: 81 mg Atorvastatin Calcium (Lipitor) 40 mg PO DIN [facility] Last Admin: 02/25/19 17:48 Dose: 40 mg Donepezil HCl (Aricept) 10 mg PO DAILY [facility] Last Admin: 02/25/19 10:08 Dose: 10 mg Guaifenesin/Dextromethorphan (Robitussin Dm) 5 ml PO Q4H PRN PRN Reason: Cough Last Admin: 02/23/19 09:27 Dose: 5 ml Metoprolol Succinate (Toprol Xl) 50 mg PO QPM [facility] Last Admin: 02/25/19 17:48 Dose: 50 mg Pantoprazole Sodium (Protonix Ec Tab) 40 mg PO 0600 [facility] Tolterodine Tartrate (Detrol La) 4 mg PO DAILY [facility] Last Admin: 02/25/19 10:08 Dose: 4 mg - Labs Labs: 02/25/19 07:00 02/24/19 06:30 PT 13.8 SECONDS (9.4-12.5) H 02/21/19 18:43 INR 1.24 02/21/19 18:43 APTT 38.5 Seconds (26.9-38.3) H 02/21/19 18:43 Attending/Attestation - Attestation I have personally seen and examined this patient.: Yes I have fully participated in the care of the patient.: Yes I have reviewed all pertinent clinical information, including history, physical exam and plan: Yes Notes (Text): This patient was seen and evaluated earlier along with the fellow earlier. Patient is tolerating pured diet. Aspirin has been resumed. Follow-up hemoglobin. Discussed with the Dr. Jacobs earlier. 02/26/19 00:20 20:47
[2019-02-26] MEDS ORDERED: Pantoprazole 40 mg EC Tab PO SCH (06:00)
[2019-02-26 06:03] VITALS: O2SAT 97
[2019-02-26 08:11] LABS: BASO # 0.02 K/mm3 (0.0-2.0); BASO % 0.3 % (0.0-3.0); EOS # 0.1 (0.0-0.7); EOS % 0.8 % (1.5-5.0); HEMOGLOBIN 8.6 g/dL (12.0-16.0); LYMPH # 2.9 (1.2-3.4); LYMPH % 40.4 % (22.0-35.0); MEAN CORPUSCULAR HEMOGLOBIN 27.3 pg (25.0-35.0); MEAN CORPUSCULAR HGB CONC 31.7 g/dl (31.0-37.0); MEAN PLATELET VOLUME 8.8 fl (7.0-11.0); MONO # 0.4 (0.1-0.6); MONO % 5.9 % (1.0-6.0); RBC 3.15 10^6/uL (3.5-6.1); WHITE BLOOD COUNT 7.2 10^3/uL (4.5-11.0)
[2019-02-26 08:29] LABS: ALB/GLOB RATIO 1.1 (1.1-1.8); ALBUMIN 3.4 g/dL (3.0-4.8); ALT/SGPT 20 U/L (7-56); AST/SGOT 39 U/L (14-36); BLOOD UREA NITROGEN 13 mg/dL (7-21); CALCIUM 8.7 mg/dL (8.4-10.5); GFR NON-AFRICAN AMERICAN > 60
--- NOTE | 2019-02-26 08:53 | CP.PCM.PN ---
<Marlon Petersen - Last Filed: 02/26/19 16:40> Subjective - Date & Time of Evaluation Date of Evaluation: 02/26/19 Time of Evaluation: 08:42 - Subjective Subjective: Marlon Petersen-Internal Medicine Resident- Consult Note on Behalf of Dr. Suarez Subjective: Patient seen and examined. No acute events overnight. Admits to having appetite and tolerating diet. Patient denies abdominal pain, nausea, vomiting, diarrhea, bright red blood per rectum, black stools. Further denies fever, chills, chest pain, SOB. 12 point ROS negative except as indicated in HPI Physical Examination: - Constitutional Appears: NAD - Head Exam Head Exam: NORMOCEPHALIC - Eye Exam Eye Exam: EOMI. absent: Scleral icterus - ENT Exam ENT Exam: Mucous Membranes Dry - Neck Exam Neck exam: Positive for: Normal Inspection - Respiratory Exam Respiratory Exam: Decreased Breath Sounds. absent: Rales, Rhonchi, Wheezes - Cardiovascular Exam Cardiovascular Exam: +S1, +S2 - GI/Abdominal Exam GI & Abdominal Exam: Normal Bowel Sounds, Soft. absent: Distended, Tenderness - Extremities Exam Additional comments: no clubbing, no cyanosis - Neurological Exam Neurological exam: Alert Additional comments: awake, alert, responds to verbal stimuli, answers questions appropriately, follows commands - Skin Skin Exam: Warm Assessment and Plan: Patient is a 79 year old female with a past medical history of hypertension and dementia who was admitted for evaluation and treatment of left facial droop, slurred speech, and left arm weakness. Normocytic Anemia- downtrending Acute CVA with left sided weakness Right hepatic lobe lesion: 1.[address] scan Studies Reviewed: - 02/16/2019 recent endoscopy showed a 5 cm polyp in the cecum which was removed with a hot snare, internal hemorrhoids, and redundant colon - continue dysphagia diet with supervised feeds - continue aspirin - continue protonix 40mg PO daily - transfuse pRBCs if patient's Hgb is less than 7] - recommend outpatient abdominal ultrasound for hepatic lobe lesion work up Patient case discussed with and plan approved by attending physician, Dr. Suarez. Objective - Vital Signs/Intake and Output Vital Signs (last 24 hours): Temp Pulse Resp BP Pulse Ox 98 F 82 20 149/94 H 97 02/26/19 06:00 02/26/19 06:00 02/26/19 06:00 02/26/19 06:00 02/26/19 06:00 Intake and Output: 02/26/19 02/26/19 06:59 18:59 Intake Total 1040 Balance 1040 - Medications Medications: Current Medications Acetaminophen (Tylenol 325mg Tab) 650 mg PO Q6H PRN PRN Reason: Pain, moderate (4-7) Aspirin (Ecotrin) 81 mg PO DAILY [facility] Last Admin: 02/25/19 10:08 Dose: 81 mg Atorvastatin Calcium (Lipitor) 40 mg PO DIN [facility] Last Admin: 02/25/19 17:48 Dose: 40 mg Donepezil HCl (Aricept) 10 mg PO DAILY [facility] Last Admin: 02/25/19 10:08 Dose: 10 mg Guaifenesin/Dextromethorphan (Robitussin Dm) 5 ml PO Q4H PRN PRN Reason: Cough Last Admin: 02/23/19 09:27 Dose: 5 ml Metoprolol Succinate (Toprol Xl) 50 mg PO QPM [facility] Last Admin: 02/25/19 17:48 Dose: 50 mg Pantoprazole Sodium (Protonix Ec Tab) 40 mg PO 0600 [facility] Last Admin: 02/26/19 05:54 Dose: 40 mg Tolterodine Tartrate (Detrol La) 4 mg PO DAILY [facility] Last Admin: 02/25/19 10:08 Dose: 4 mg - Labs Labs: 02/26/19 07:50 02/26/19 07:50 PT 13.8 SECONDS (9.4-12.5) H 02/21/19 18:43 INR 1.24 02/21/19 18:43 APTT 38.5 Seconds (26.9-38.3) H 02/21/19 18:43 <Erick,Kovil V - Last Filed: 02/26/19 20:50> Objective - Vital Signs/Intake and Output Vital Signs (last 24 hours): Temp Pulse Resp BP Pulse Ox 98.2 F 98 H 18 124/85 97 02/26/19 12:00 02/26/19 12:00 02/26/19 12:00 02/26/19 12:00 02/26/19 06:00 - Labs Labs: 02/26/19 07:50 02/26/19 07:50 PT 13.8 SECONDS (9.4-12.5) H 02/21/19 18:43 INR 1.24 02/21/19 18:43 APTT 38.5 Seconds (26.9-38.3) H 02/21/19 18:43 Attending/Attestation - Attestation I have personally seen and examined this patient.: Yes I have fully participated in the care of the patient.: Yes I have reviewed all pertinent clinical information, including history, physical exam and plan: Yes Notes (Text): This patient was seen and evaluated earlier. This is an addendum to the GI progress note dictated by the resident. Patient hemoglobin stable. Continue aspirin. Continue pured diet. 02/26/19 20:49
--- NOTE | 2019-02-26 10:10 | CP.PCM.PCO ---
Physician Communication Note - Physician Communication Note Physician Communication Note: spoke to Dr Craig, for acute rehab when bed available
[2019-02-26] MEDS: Tolterodine 4 mg ER Cap PO SCH (10:11)
[2019-02-26 12:31] VITALS: BP 124/85; PULSE 98; RESP 18; TEMP 98.2
--- NOTE | 2019-02-26 12:50 | CP.PCM.PN ---
<Sami Goff - Last Filed: 02/26/19 13:38> Subjective - Date & Time of Evaluation Date of Evaluation: 02/26/19 Time of Evaluation: 08:10 - Subjective Subjective: Sami Goff D.O. PGY-3, Internal Medicine Resident, Dr. 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 Patient was seen and examined at bedside. Patient overall states that she is feeling better at this time. States is interested in doing additional therapy to get stronger. Previously patient was very independent. Objective - Vital Signs/Intake and Output Vital Signs (last 24 hours): Temp Pulse Resp BP Pulse Ox 98.2 F 98 H 18 124/85 97 02/26/19 12:00 02/26/19 12:00 02/26/19 12:00 02/26/19 12:00 02/26/19 06:00 Intake and Output: 02/26/19 02/26/19 06:59 18:59 Intake Total 1040 Balance 1040 - Medications Medications: Current Medications Acetaminophen (Tylenol 325mg Tab) 650 mg PO Q6H PRN PRN Reason: Pain, moderate (4-7) Aspirin (Ecotrin) 81 mg PO DAILY [facility] Last Admin: 02/26/19 10:12 Dose: 81 mg Atorvastatin Calcium (Lipitor) 40 mg PO DIN [facility] Last Admin: 02/25/19 17:48 Dose: 40 mg Donepezil HCl (Aricept) 10 mg PO DAILY [facility] Last Admin: 02/26/19 10:11 Dose: 10 mg Ferrous Sulfate (Feosol) 324 mg PO BID [facility] Last Admin: 02/26/19 10:12 Dose: 324 mg Guaifenesin/Dextromethorphan (Robitussin Dm) 5 ml PO Q4H PRN PRN Reason: Cough Last Admin: 02/23/19 09:27 Dose: 5 ml Metoprolol Succinate (Toprol Xl) 50 mg PO QPM [facility] Last Admin: 02/25/19 17:48 Dose: 50 mg Pantoprazole Sodium (Protonix Ec Tab) 40 mg PO 0600 [facility] Last Admin: 05/13/19 05:54 Dose: 40 mg Tolterodine Tartrate (Detrol La) 4 mg PO DAILY [facility] Last Admin: 02/26/19 10:11 Dose: 4 mg - Labs Labs: 02/26/19 07:50 02/26/19 07:50 PT 13.8 SECONDS (9.4-12.5) H 02/21/19 18:43 INR 1.24 02/21/19 18:43 APTT 38.5 Seconds (26.9-38.3) H 02/21/19 18:43 - Constitutional Appears: Non-toxic, No Acute Distress - Head Exam Head Exam: ATRAUMATIC, NORMOCEPHALIC - Eye Exam Eye Exam: EOMI. absent: Scleral icterus - ENT Exam ENT Exam: Mucous Membranes Moist - Neck Exam Neck Exam: Normal Inspection. absent: Lymphadenopathy - Respiratory Exam Respiratory Exam: Clear to Ausculation Bilateral. absent: Rhonchi, Wheezes - Cardiovascular Exam Cardiovascular Exam: RRR, +S1, +S2 - GI/Abdominal Exam GI & Abdominal Exam: Soft, Normal Bowel Sounds. 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 Plan: 1. 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 Alzheimer's Dementia 3. Hypertension 4. Normocytic normochromic anemia 5. Hyperlipidemia 6. Urinary incontinence Discussed with case management about the possibility of acute rehab for patient. They are working on this today. Overall patient clinically improved. Continue with aspirin. B12 and folate normal with low iron, will start iron 324 mg p.o. twice daily. Continue with atorvastatin 40 mg p.o. at dinner, metoprolol 50 mg p.o. QPM, Protonix 40 mg daily, and tolterodine 4 mg p.o. daily. Patient was seen and examined and case was discussed at length with attending physician. <GertrudeOziel S - Last Filed: 02/26/19 15:29> Objective - Vital Signs/Intake and Output Vital Signs (last 24 hours): Temp Pulse Resp BP Pulse Ox 98.2 F 98 H 18 124/85 97 02/26/19 12:00 02/26/19 12:00 02/26/19 12:00 02/26/19 12:00 02/26/19 06:00 Intake and Output: 02/26/19 02/26/19 06:59 18:59 Intake Total 1040 Balance 1040 - Medications Medications: Current Medications Acetaminophen (Tylenol 325mg Tab) 650 mg PO Q6H PRN PRN Reason: Pain, moderate (4-7) Aspirin (Ecotrin) 81 mg PO DAILY [facility] Last Admin: 02/26/19 10:12 Dose: 81 mg Atorvastatin Calcium (Lipitor) 40 mg PO DIN [facility] Last Admin: 02/25/19 17:48 Dose: 40 mg Donepezil HCl (Aricept) 10 mg PO DAILY [facility] Last Admin: 02/26/19 10:11 Dose: 10 mg Ferrous Sulfate (Feosol) 324 mg PO BID [facility] Last Admin: 02/26/19 10:12 Dose: 324 mg Guaifenesin/Dextromethorphan (Robitussin Dm) 5 ml PO Q4H PRN PRN Reason: Cough Last Admin: 02/23/19 09:27 Dose: 5 ml Metoprolol Succinate (Toprol Xl) 50 mg PO QPM [facility] Last Admin: 02/25/19 17:48 Dose: 50 mg Pantoprazole Sodium (Protonix Ec Tab) 40 mg PO 0600 [facility] Last Admin: 02/26/19 05:54 Dose: 40 mg Tolterodine Tartrate (Detrol La) 4 mg PO DAILY [facility] Last Admin: 02/26/19 10:11 Dose: 4 mg - Labs Labs: 02/26/19 07:50 02/26/19 07:50 PT 13.8 SECONDS (9.4-12.5) H 02/21/19 18:43 INR 1.24 02/21/19 18:43 APTT 38.5 Seconds (26.9-38.3) H 02/21/19 18:43 Assessment and Plan - Assessment and Plan (Free Text) Plan: Pt seen and examined by me. I have reviewed the note of the medical nurse and I agree with it. I have discussed the assessment and plan with the resident. I have reviewed the medications and the last labs.
[2019-02-26 13:00] LABS: FOLATE > 20.0 ng/mL
--- NOTE | 2019-02-26 13:57 | CP.PCM.DIS ---
<Goff,Sami - Last Filed: 02/26/19 15:47> Provider - Provider Date of Admission: 02/21/19 20:24 Attending physician: Oziel Loredo MD Primary care physician: Tiny Mason MD Consults: 02/22/19 01:52 Nursing Referral for Palliative Care Routine Comment: Physician Instructions: Reason For Exam: routine assessment 02/22/19 02:01 Social Work Referral Routine Comment: routine Physician Instructions: Reason For Exam: admission assessment 02/22/19 08:44 Consult [Physician Consult] Routine Comment: Consulting Provider: Yoni Ortiz Consulting Physician: Yoni Ortiz Reason for Consult: CVA 02/23/19 09:20 Consult [Physician Consult] Routine Comment: Consulting Provider: Lia Suarez V Consulting Physician: Lia Suarez V Reason for Consult: anemia Time Spent in preparation of Discharge (in minutes): 45 Diagnosis - Discharge Diagnosis (1) CVA (cerebral vascular accident) Status: Acute (2) Hypertensive emergency Status: Acute (3) Alzheimer disease Status: Chronic (4) Iron deficiency anemia Status: Chronic (5) Hypertension Status: Chronic Hospital Course - Lab Results Lab Results: Micro Results 02/21/19 23:35 Naris MRSA Culture (Admit) - Final MRSA NOT DETECTED Most Recent Lab Values WBC 7.2 10^3/uL (4.5-11.0) 02/26/19 07:50 RBC 3.15 10^6/uL (3.5-6.1) L 02/26/19 07:50 Hgb 8.6 g/dL (12.0-16.0) L 02/26/19 07:50 Hct 27.1 % (36.0-48.0) L 02/26/19 07:50 MCV 86.0 fl (80.0-105.0) 02/26/19 07:50 MCH 27.3 pg (25.0-35.0) 02/26/19 07:50 MCHC 31.7 g/dl (31.0-37.0) 02/26/19 07:50 RDW 15.0 % (11.5-14.5) H 02/26/19 07:50 Plt Count 326 10^3/uL (120.0-450.0) 02/26/19 07:50 MPV 8.8 fl (7.0-11.0) 02/26/19 07:50 Neut % (Auto) 52.6 % (50.0-68.0) 02/26/19 07:50 Lymph % (Auto) 40.4 % (22.0-35.0) H 02/26/19 07:50 [place] % (Auto) 5.9 % (1.0-6.0) 02/26/19 07:50 Eos % (Auto) 0.8 % (1.5-5.0) L 02/26/19 07:50 Baso % (Auto) 0.3 % (0.0-3.0) 02/26/19 07:50 Lymph # (Auto) 2.9 (1.2-3.4) 02/26/19 07:50 [place] # (Auto) 0.4 (0.1-0.6) 02/26/19 07:50 Eos # (Auto) 0.1 (0.0-0.7) 02/26/19 07:50 Baso # (Auto) 0.02 K/mm3 (0.0-2.0) 02/26/19 07:50 Absolute Neuts (auto) 3.77 (1.4-6.5) 02/26/19 07:50 PT 13.8 SECONDS (9.4-12.5) H 02/21/19 18:43 INR 1.24 02/21/19 18:43 APTT 38.5 Seconds (26.9-38.3) H 02/21/19 18:43 Sodium 141 mmol/L (132-148) 02/26/19 07:50 Potassium 3.9 mmol/L (3.6-5.0) 02/26/19 07:50 Chloride 104 mmol/L (98-107) 02/26/19 07:50 Carbon Dioxide 31 mmol/L (21-33) 02/26/19 07:50 Anion Gap 10 (10-20) 02/26/19 07:50 BUN 13 mg/dL (7-21) 02/26/19 07:50 Creatinine 0.8 mg/dl (0.7-1.2) 02/26/19 07:50 Est GFR ( Amer) > 60 02/26/19 07:50 Est GFR (Non-Af Amer) > 60 02/26/19 07:50 POC Glucose (mg/dL) 109 mg/dL (65-110) 02/21/19 17:44 Random Glucose 92 mg/dL (70-110) 02/26/19 07:50 Calcium 8.7 mg/dL (8.4-10.5) 02/26/19 07:50 Phosphorus 3.4 mg/dL (2.5-4.5) 02/26/19 07:50 Magnesium 1.8 mg/dL (1.7-2.2) 02/26/19 07:50 Iron 39 ug/dL (45-180) L 02/23/19 11:30 TIBC 242 ug/dL (265-497) L 02/23/19 11:30 % Saturation 16 % (20-55) L 02/23/19 11:30 Ferritin 124.0 ng/mL 02/23/19 11:30 Total Bilirubin 0.3 mg/dL (0.2-1.3) 02/26/19 07:50 AST 39 U/L (14-36) H D 02/26/19 07:50 ALT 20 U/L (7-56) 02/26/19 07:50 Alkaline Phosphatase 56 U/L (38-126) 02/26/19 07:50 Troponin I < 0.01 ng/mL 02/21/19 18:43 Total Protein 6.4 g/dL (5.8-8.3) 02/26/19 07:50 Albumin 3.4 g/dL (3.0-4.8) 02/26/19 07:50 Globulin 3.0 gm/dL 02/26/19 07:50 Albumin/Globulin Ratio 1.1 (1.1-1.8) 02/26/19 07:50 Triglycerides 147 mg/dL (35-160) 02/21/19 18:43 Cholesterol 168 mg/dL (130-200) 02/21/19 18:43 LDL Cholesterol Direct 84 mg/dL (0-129) 02/21/19 18:43 HDL Cholesterol 43 mg/dL (29-60) 02/21/19 18:43 Vitamin B12 724 pg/mL (239-931) 02/26/19 07:50 Folate > 20.0 ng/mL 02/26/19 07:50 Urine Color Yellow (YELLOW) 02/21/19 21:10 Urine Appearance Clear (CLEAR) 02/21/19 21:10 Urine pH 6.5 (4.7-8.0) 02/21/19 21:10 Ur Specific [place] 1.025 (1.005-1.035) 02/21/19 21:10 Urine Protein 30 mg/dL (<30 mg/dL) H 02/21/19 21:10 Urine Glucose (UA) Negative mg/dL (NEGATIVE) 02/21/19 21:10 Urine Ketones Negative mg/dL (NEGATIVE) 02/21/19 21:10 Urine Blood Trace-intact (NEGATIVE) H 02/21/19 21:10 Urine Nitrate Negative (NEGATIVE) 02/21/19 21:10 Urine Bilirubin Negative (NEGATIVE) 02/21/19 21:10 Urine Urobilinogen 0.2 E.U./dL (<1 E.U./dL) 02/21/19 21:10 Ur Leukocyte Esterase Negative [place]/uL (NEGATIVE) 02/21/19 21:10 Urine RBC 2 - 5 /hpf (0-2) H 02/21/19 21:10 Urine WBC 1 - 3 /hpf (0-6) 02/21/19 21:10 Ur Epithelial Cells 4 - 5 /hpf (0-5) 02/21/19 21:10 Urine Bacteria Few /hpf (NONE) 02/21/19 21:10 Blood Type O POSITIVE 02/21/19 19:30 Antibody Screen Negative 02/21/19 19:30 BBK History Checked Patient has bt 02/21/19 19:30 - Hospital Course Hospital Course: 79-year-old female with a past medical history of hypertension, Alzheimer's dementia and urinary incontinence who presented for left facial droop and left upper extremity weakness. Patient had a head CT showing nonspecific vague hypodense region within the right vertex. Patient was given TPA in the emergency room. Patient was admitted for further evaluation. Patient had a head and neck CTA which showed no significant carotid or vertebral stenosis and unremarkable CT angios of the brain. Patient was seen by neurology. Patient had a brain MRI which showed a small acute cortical infarct in the right posterior frontal lobe 17 x 17 mm. Patient had downtrending hemoglobin and there was a concern for GI bleeding. GI was consulted and evaluated the patient. Patient had an abdomen and pelvis CT which showed no intra-abdominal or pelvic hemorrhage. Patient's aspirin was held and patient was treated with Protonix. Patient's hemoglobin stabilized in the eights. Patient was found to have iron deficiency and was started on iron supplementation. Patient's blood pressure was controlled with metoprolol. Her dementia was treated with home do nepezil. Her urinary incontinence was treated with tolterodine. Refer to today's progress notes. Patient was found to be in a stable condition for discharge to acute rehab today. Medication reconciliation was done. Discussed case at length with case management as well as nurse practitioners. - Date & Time of H&P Date of H&P: 02/26/19 Time of H&P: 15:49 Discharge Exam - Head Exam Head Exam: ATRAUMATIC, NORMOCEPHALIC Additional comments: mild alopecia - Eye Exam Eye Exam: EOMI. absent: Scleral icterus - ENT Exam ENT Exam: Mucous Membranes Moist - Neck Exam Neck Exam: Normal Inspection. absent: Lymphadenopathy - Respiratory Exam Respiratory Exam: Clear to Ausculation Bilateral. absent: Rhonchi, Wheezes - Cardiovascular Exam Cardiovascular Exam: RRR, +S1, +S2 - GI/Abdominal Exam GI & Abdominal Exam: Soft, Normal Bowel Sounds. 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 Continue intensive physical therapy at [facility]. 2. Follow-up with primary medical doctor after discharge from acute rehab. 3. Follow-up with gastroenterology and neurology as indicated. 4. All medications from home can be continued. Only new medication is iron 324 mg p.o. twice daily. Please refer to medication reconciliation. 5. Maintain hydration. Referrals: Tiny Mason MD [Primary Care Provider] - <Oziel Loredo - Last Filed: 02/26/19 16:35> Provider - Provider Date of Admission: 02/21/19 20:24 Attending physician: Oziel Loredo MD Primary care physician: Tiny Mason MD Consults: 02/22/19 01:52 Nursing Referral for Palliative Care Routine Comment: Physician Instructions: Reason For Exam: routine assessment 02/22/19 02:01 Social Work Referral Routine Comment: routine Physician Instructions: Reason For Exam: admission assessment 02/22/19 08:44 Consult [Physician Consult] Routine Comment: Consulting Provider: Yoni Ortiz Consulting Physician: Yoni Ortiz Reason for Consult: CVA 02/23/19 09:20 Consult [Physician Consult] Routine Comment: Consulting Provider: Lia Suarez V Consulting Physician: Lia Suarez V Reason for Consult: anemia Hospital Course - Lab Results Lab Results: Micro Results 02/21/19 23:35 Naris MRSA Culture (Admit) - Final MRSA NOT DETECTED Most Recent Lab Values WBC 7.2 10^3/uL (4.5-11.0) 02/26/19 07:50 RBC 3.15 10^6/uL (3.5-6.1) L 02/26/19 07:50 Hgb 8.6 g/dL (12.0-16.0) L 02/26/19 07:50 Hct 27.1 % (36.0-48.0) L 02/26/19 07:50 MCV 86.0 fl (80.0-105.0) 02/26/19 07:50 MCH 27.3 pg (25.0-35.0) 02/26/19 07:50 MCHC 31.7 g/dl (31.0-37.0) 02/26/19 07:50 RDW 15.0 % (11.5-14.5) H 02/26/19 07:50 Plt Count 326 10^3/uL (120.0-450.0) 02/26/19 07:50 MPV 8.8 fl (7.0-11.0) 02/26/19 07:50 Neut % (Auto) 52.6 % (50.0-68.0) 02/26/19 07:50 Lymph % (Auto) 40.4 % (22.0-35.0) H 02/26/19 07:50 [place] % (Auto) 5.9 % (1.0-6.0) 02/26/19 07:50 Eos % (Auto) 0.8 % (1.5-5.0) L 02/26/19 07:50 Baso % (Auto) 0.3 % (0.0-3.0) 02/26/19 07:50 Lymph # (Auto) 2.9 (1.2-3.4) 02/26/19 07:50 [place] # (Auto) 0.4 (0.1-0.6) 02/26/19 07:50 Eos # (Auto) 0.1 (0.0-0.7) 02/26/19 07:50 Baso # (Auto) 0.02 K/mm3 (0.0-2.0) 02/26/19 07:50 Absolute Neuts (auto) 3.77 (1.4-6.5) 02/26/19 07:50 PT 13.8 SECONDS (9.4-12.5) H 02/21/19 18:43 INR 1.24 02/21/19 18:43 APTT 38.5 Seconds (26.9-38.3) H 02/21/19 18:43 Sodium 141 mmol/L (132-148) 02/26/19 07:50 Potassium 3.9 mmol/L (3.6-5.0) 02/26/19 07:50 Chloride 104 mmol/L (98-107) 02/26/19 07:50 Carbon Dioxide 31 mmol/L (21-33) 02/26/19 07:50 Anion Gap 10 (10-20) 02/26/19 07:50 BUN 13 mg/dL (7-21) 02/26/19 07:50 Creatinine 0.8 mg/dl (0.7-1.2) 02/26/19 07:50 Est GFR ( Amer) > 60 02/26/19 07:50 Est GFR (Non-Af Amer) > 60 02/26/19 07:50 POC Glucose (mg/dL) 109 mg/dL (65-110) 02/21/19 17:44 Random Glucose 92 mg/dL (70-110) 02/26/19 07:50 Calcium 8.7 mg/dL (8.4-10.5) 02/26/19 07:50 Phosphorus 3.4 mg/dL (2.5-4.5) 02/26/19 07:50 Magnesium 1.8 mg/dL (1.7-2.2) 02/26/19 07:50 Iron 39 ug/dL (45-180) L 02/23/19 11:30 TIBC 242 ug/dL (265-497) L 02/23/19 11:30 % Saturation 16 % (20-55) L 02/23/19 11:30 Ferritin 124.0 ng/mL 02/23/19 11:30 Total Bilirubin 0.3 mg/dL (0.2-1.3) 02/26/19 07:50 AST 39 U/L (14-36) H D 02/26/19 07:50 ALT 20 U/L (7-56) 02/26/19 07:50 Alkaline Phosphatase 56 U/L (38-126) 02/26/19 07:50 Troponin I < 0.01 ng/mL 02/21/19 18:43 Total Protein 6.4 g/dL (5.8-8.3) 02/26/19 07:50 Albumin 3.4 g/dL (3.0-4.8) 02/26/19 07:50 Globulin 3.0 gm/dL 02/26/19 07:50 Albumin/Globulin Ratio 1.1 (1.1-1.8) 02/26/19 07:50 Triglycerides 147 mg/dL (35-160) 02/21/19 18:43 Cholesterol 168 mg/dL (130-200) 02/21/19 18:43 LDL Cholesterol Direct 84 mg/dL (0-129) 02/21/19 18:43 HDL Cholesterol 43 mg/dL (29-60) 02/21/19 18:43 Vitamin B12 724 pg/mL (239-931) 02/26/19 07:50 Folate > 20.0 ng/mL 02/26/19 07:50 Urine Color Yellow (YELLOW) 02/21/19 21:10 Urine Appearance Clear (CLEAR) 02/21/19 21:10 Urine pH 6.5 (4.7-8.0) 02/21/19 21:10 Ur Specific [place] 1.025 (1.005-1.035) 02/21/19 21:10 Urine Protein 30 mg/dL (<30 mg/dL) H 02/21/19 21:10 Urine Glucose (UA) Negative mg/dL (NEGATIVE) 02/21/19 21:10 Urine Ketones Negative mg/dL (NEGATIVE) 02/21/19 21:10 Urine Blood Trace-intact (NEGATIVE) H 02/21/19 21:10 Urine Nitrate Negative (NEGATIVE) 02/21/19 21:10 Urine Bilirubin Negative (NEGATIVE) 02/21/19 21:10 Urine Urobilinogen 0.2 E.U./dL (<1 E.U./dL) 02/21/19 21:10 Ur Leukocyte Esterase Negative Geovani/uL (NEGATIVE) 02/21/19 21:10 Urine RBC 2 - 5 /hpf (0-2) H 02/21/19 21:10 Urine WBC 1 - 3 /hpf (0-6) 02/21/19 21:10 Ur Epithelial Cells 4 - 5 /hpf (0-5) 02/21/19 21:10 Urine Bacteria Few /hpf (NONE) 02/21/19 21:10 Blood Type O POSITIVE 02/21/19 19:30 Antibody Screen Negative 02/21/19 19:30 BBK History Checked Patient has bt 02/21/19 19:30 - Hospital Course Hospital Course: Pt seen and examined by me. I have reviewed the note of the medical technologist chief and I agree with it. I have discussed the assessment and plan with the resident. I have reviewed the medications and the last labs.
--- NOTE | 2019-02-27 01:50 | DS ---
HOSPITAL COURSE: The patient was seen and examined. I do agree with the note of the paramedical aide. I was involved in the plan of care. The patient had a CVA with a right frontal lobe involvement. She had been given TPA. She had some improvement of her left arm and left leg, but is going to require full rehabilitation. The patient is currently on aspirin. She is on Protonix daily. She is on tolterodine for her incontinence. The patient is going to be on atorvastatin for dyslipidemia. She has a blood pressure that is controlled. Her blood pressure is 124/85. The patient is on iron for anemia. She is on a dysphagia diet. Her appetite is fairly good. She is going to be discharged today and going for acute rehab in [facility]. Oziel Loredo MD
== END 2019-02-26 16:52 | DRG 65 ==
LOC: ED 17:36 → ERH 20:24 → ICU 23:04 → 2RNO 02-23 09:32
PROVIDERS: ADMIT Internal Medicine Nephrology; ATTEND Internal Medicine Nephrology
DX: I63.511 Cerebral infarction due to unspecified occlusion or stenosis of right middle cerebral artery (principal); J98.11 Atelectasis; I16.1 Hypertensive emergency; G81.94 Hemiplegia, unspecified affecting left nondominant side; R29.810 Facial weakness; R47.1 Dysarthria and anarthria; R13.10 Dysphagia, unspecified; R29.711 NIHSS score 11; K21.9 Gastro-esophageal reflux disease without esophagitis; I10 Essential (primary) hypertension; D64.9 Anemia, unspecified; G30.9 Alzheimer's disease, unspecified; F02.80 Dementia in other diseases classified elsewhere, unspecified severity, without behavioral disturbance, psychotic disturbance, mood disturbance, and anxiety; D50.9 Iron deficiency anemia, unspecified; K63.5 Polyp of colon; K64.8 Other hemorrhoids; E78.5 Hyperlipidemia, unspecified; R32 Unspecified urinary incontinence; Z79.82 Long term (current) use of aspirin